=== PATIENT | female | born 1985 | race African-American/Black ===

== ENCOUNTER 2019-11-23 12:17 | Emergency (ER) | payer SELFPAY ==
--- NOTE | 2019-11-23 13:08 | EDM.PDOC ---
ED HPI GENERAL MEDICAL PROBLEM - General Chief Complaint: ENT Problem Stated Complaint: COUGH, SORE THROAT Time Seen by Provider: 11/23/19 12:20 - History of Present Illness INITIAL COMMENTS - FREE TEXT/NARRATIVE: HPI 33-year-old female with history of Crohns (apparently in remission requiring a medication) presents for evaluation of a nonproductive cough, sore throat, and sinus congestion of one day duration. No fevers, chills. Denies rash, neck stiffness, headache, changes in vision or hearing, or ear pain. M/S/F/SocHx notable for: please see HPI; remainder reviewed with patient and in chart. ROS: Negative constitutional, eye, cardiovascular, pulmonary, GI, , MSK, skin , neurologic, psychiatric, endocrine unless noted in the HPI. Exam HR 113, RR 16, BP 120/86, T 36.4C, SaO2 97% on room air. Gen: Pleasant, non-toxic appearing, resting comfortably. HEENT: Normocephalic, atraumatic. * Ears - TMs clear bilaterally, bilateral external auditory canals without erythema, inflammation, or swelling, bilateral mastoids nontender without overlying erythema, swelling, or warmth. * Eyes - Bilateral eyes without injection, swelling, or discharge, no proptosis or periorbital erythema, swelling, warmth, or tenderness. * Mouth - Anterior oropharynx with MMM, no lesions appreciated, floor of the mouth is soft and without swelling. Posterior oropharynx with mild erythema but without swelling, exudate, lesions, uvula midline. * Nose - Nares with scant crusting and discharge. * Neck - Neck supple without posterior or anterior cervical chain lymphadenopathy bilaterally. Resp: Clear to auscultation bilaterally, normal work of breathing without accessory muscle usage. Frequent nonproductive cough observed. Card: Regular rate and rhythm with no murmurs, rubs or gallops. Extremities warm and well perfused. GI: Non-tender to palpation throughout all quadrants, no masses or organomegaly appreciated. : Deferred MSK: No visible deformities, strength and tone without visually appreciable deficit. Neuro: alert and oriented 3, no facial asymmetry, vision and hearing WNL. Heme/Lymph: Deferred Skin: Normal color with no visible lesions (other than noted above). Psych: Mood and affect appropriate. MDM Previous chart, nursing note, and vitals reviewed. A: 33-year-old female with history of Crohns (apparently in remission requiring a medication) presents for evaluation of a nonproductive cough, sore throat, and sinus congestion of one day duration. DDx: viral rhinosinusitis, bacterial rhinosinusitis, pharyngitis (HSV vs viral NOS vs GAS vs bacterial NOS)], EBV, peritonsillar cellulitis, BAND LEADER, RPA, Donell' s angina, epiglottitis. Evaluation: Overall presentation most consistent with a viral rhinosinutisis, given the duration of symptoms and overall well compensated appearance, antibiotic treatment is not currently indicated, rapid strep not indicated, oral mucosa without lesions consistent with HSV or candidiasis, low suspicion for peritonsillar cellulitis or abscess given the absence of asymmetric swelling or uvular deviation, RPA is unlikely as the patient can comfortably flex and extend their neck and swallow without difficulty. As phonation is intact and breathing is unlabored doubt epiglottitis. The floor of the mouth is without evidence of Donell's angina. Lemierre's disease was considered but as the patient does not have signs of BAND LEADER or sepsis, further evaluation was not indicated. Influencer was also considered on the differential, as the patient has a history of Crohns disease she would meet CDC treatment guidelines, negative rapid test were obtained, as such Tamiflu is not indicated. ED Course: No clinically significant changes. Disposition: Discharge with return to care as needed. Return to care indications provided. RX for Tessalon Perles provided. Impression: Rhinosinusitis. Throat Pain Score (Numeric/FACES): 8 - Related Data Allergies Allergy/AdvReac Type Severity Reaction Status Date / Time No Known Allergies Allergy Verified 11/23/19 12:29 Home Meds: Home Meds Benzonatate [Tessalon Perle] 100 - 200 mg PO TID PRN #20 capsule 11/23/19 [Rx] Past Medical History Gastrointestinal History: Reports: Irritable Bowel Syndrome - Infectious Disease History Infectious Disease History: Reports: None Social & Family History - Family History Family Medical History: Noncontributory - Tobacco Use Smoking Status *Q: Never Smoker Second Hand Smoke Exposure: No - Caffeine Use Caffeine Use: Reports: None - Recreational Drug Use Recreational Drug Use: No ED ROS GENERAL - Review of Systems Review Of Systems: See Below ED EXAM, GENERAL - Physical Exam Exam: See Below Course - Vital Signs Last Recorded V/S: Last Vital Signs Temp 36.4 C 11/23/19 12:29 Pulse 113 H 11/23/19 12:29 Resp 16 11/23/19 12:29 BP 120/86 11/23/19 12:29 Pulse Ox 97 11/23/19 12:29 Departure - Departure Time of Disposition: 13:07 Disposition: Home, Self-Care 01 Clinical Impression: Rhinosinusitis - Discharge Information Prescriptions: Benzonatate [Tessalon Perle] 100 - 200 mg PO TID PRN #20 capsule PRN Reason: cough Referrals: PCP,Unknown [Primary Care Provider] - Additional Instructions: You were in seen in the [facility] Emergency Department for evaluation of an upper respiratory tract infection. Please read and follow all of the instructions below. Please follow up with your primary care physician as needed. When calling for follow-up care, please make the office aware that this follow-up is from your recent emergency room visit. If for any reason you are refused follow-up, please contact the [facility] Emergency Department at and asked to speak to the emergency department charge nurse. Your care today was limited to identifying and treating emergent medical problems only. Many people have subtle differences in their test results that require follow up with their outpatient physician(s) to correctly determine if this represents a normal variation or concerning abnormality with respect to your specific health. The care given to you today was limited to identifying and treating emergent medical problems - you need to request a copy of all of your medical records from today's visit and follow up with your outpatient physician(s) to review both today's visit and your overall health. If you have any new symptoms or if you are at all concerned about your health please return immediately to the emergency department. Prescriptions: If you are uninsured or have financial difficulties with filling your prescription(s), you may consider using a free pharmacy discount service such as [employer] ([employer]) or [employer] ([employer]). These services allow you to search for a medication on your phone (or computer) and obtain a coupon that usually has a significant discount from the list [place] at a pharmacy. Your physician as well as [facility] does not have a financial relationship with either of these services. You may also wish to speak with your physician to determine if lower cost prescriptions are possible. Obtaining primary care: 1. [facility] provides pediatrics (children), family medicine (children, adults, and some obstetrical care), and internal medicine (adults). Further specialty care is also available. Same day appointments are available. They may be contacted at [phone] and are open Friday through Friday 8 AM to 5 PM. The [facility] are located at [facility], [address] [place] [address]. 2. [facility] offers family medicine, internal medicine, women health, and further specialty care. [facility] may be contacted at [phone]. [facility] is located at [address] [facility] [address]. 3. If you have health insurance, please also contact your insurer for a list of accepting providers under your policy, you may contact these providers for further health care. Occupational health: Work related injuries may consider following up with [facility], . Occupational health services are located at [address] [place] [address] and are open Friday through Friday from 7: 30 am to 5:00 pm. Obstetrical and Gynecological Care: [facility], , Friday through Friday 8 AM to [address] [place] [address]. Eyecare: If you have an eye injury you should follow up with your completion supervisor or with [facility], at [phone] or [phone] , they are located at [address] [place] [address]. Dental Care Jonah Méndez DDS. [address] [place], [place]. Ph. [phone] Mundo Méndez DDS [place]. [address] Ph. [phone] Levy Brewer DDS. [address] 11/[address] [place] [address]. Ph. [phone] Steven Boggs DDS. [address] [facility] [address] [place], [place]. Ph. [phone] Anil Franco DDS PC. [address] [facility] [address] [place], [place]. Ph. [phone] Jovana Zelalem Robins DDS. [address] [facility]. Ph. [phone] [facility]. [address] [place], [place]. Ph. [phone] [facility]. [address], [place], [place]. Ph. [phone] [facility] [address] [place] [phone]. Ph. [facility]. [address] [place] [address] [address] [place], [place]. Ph. [facility]. [address] [place], [place]. Ph. [phone] Cough Home Care Instructions You were seen in the emergency department today for evaluation of your cough. Based upon the evaluation today your cough does not appear to be caused by bacterial pneumonia, rather a virus is the cause of your cough. These types of infections cannot be treated by antibiotics, your body will fight this infection and clear the virus. Most people get better in 7-10 days. It is not uncommon to have a mild nonproductive cough last for up to several weeks following the resolution of your illness. If you continue have a cough beyond 7- 10 days please follow-up with your primary care physician. You may do the following treatments to reduce your symptoms: * Welf-gvf-lhdmejr cough medications containing dextromethorphan may reduce the frequency and severity of your coughing. Please take as directed on the bottle. Please read all warnings on the bottle. Do not take this medication if you have any allergies to any of the ingredients listed on the bottle. * Ibuprofen may be used to reduce fever, pain, and inflammation. You may take 600 mg (three 200 mg eooh-xke-tchiivf tablets) every 6-8 hours. Please read the warnings below regarding ibuprofen. Do not take this medication if you are or allergic to ibuprofen, Motrin, Aleve, or naproxen. * Please stay well-hydrated and get adequate rest. * If you are a smoker please stop smoking. * Nbwj-ktl-pldaola lozenges or tea with honey may be used for sore throat. Please return to the emergency department if any of the following occur: * Increasing fever. * Worsening cough or a cough that becomes productive of thick sputum. * A cough that temporarily gets better and then over the several days get significantly worse. This may occur if you developed a bacterial pneumonia following your viral infection. This rarely occurs and there is no prevention at this point in your infection. * Chest pain. * Shortness of breath or difficulty breathing. * If you are otherwise concerned about your health. Sepsis Event Note - Evaluation Sepsis Screening Result: No Definite Risk - Focused Exam Vital Signs: Vital Signs Temp Pulse Resp BP Pulse Ox 11/23/19 12:29 36.4 C 113 H 16 120/86 97 Date Exam was Performed: 11/23/19 Time Exam was Performed: 13:06
== END 2019-11-23 13:25 | disposition home or self-care (01) ==
LOC: MW.ED 12:17
DX: J32.9 Chronic sinusitis, unspecified (principal)
CPT/HCPCS: 87804; 99282; 99283

== ENCOUNTER 2020-01-20 06:46 | Emergency (ER) | payer SELFPAY ==
--- NOTE | 2020-01-20 07:33 | EDM.PDOC ---
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 She is 12 weeks . Her LMP was 10/27/2019. She is a G2, P1, A0. She has no vaginal discharge or bloody show. She complains of increasing nausea but no vomiting at this time. She denies any urinary complaints. She denies any other symptoms. Her OB doctor is Desire Welch MD. She last saw Dr. Welch January 06, 2020. 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: - Infectious Disease History Infectious Disease History: Reports: None - Past Surgical History GI Surgical History: Reports: None Female Surgical History: Reports: Section Social & Family History - Family History Family Medical History: Noncontributory - Tobacco Use Smoking Status *Q: Never Smoker Second Hand Smoke Exposure: No - Caffeine Use Caffeine Use: Reports: None - Recreational Drug Use Recreational Drug Use: No ED ROS GENERAL - Review of Systems Review Of Systems: See Below Constitutional: Reports: No Symptoms HEENT: Reports: No Symptoms Respiratory: Reports: No Symptoms Cardiovascular: Reports: No Symptoms Endocrine: Reports: No Symptoms GI/Abdominal: Reports: Abdominal Pain (lower abdomen that is crampy) : Reports: No Symptoms Musculoskeletal: Reports: No Symptoms Skin: Reports: No Symptoms Neurological: Reports: No Symptoms ED EXAM - Physical Exam Exam: See Below Exam Limited By: No Limitations General Appearance: Alert, WD/WN, No Apparent Distress Ears: Normal External Exam, Normal Canal, Hearing Grossly Normal, Normal TMs Nose: Normal Inspection, Normal Mucosa, No Blood Throat/Mouth: Normal Inspection, Normal Lips, Normal Teeth, Normal Gums, Normal Oropharynx, Normal Voice, No Airway Compromise Head: Atraumatic, Normocephalic Neck: Normal Inspection, Supple, Non-Tender, Full Range of Motion Respiratory/Chest: No Respiratory Distress, Lungs Clear, Normal Breath Sounds, No Accessory Muscle Use, Chest Non-Tender Cardiovascular: Normal Peripheral Pulses, Regular Rate, Rhythm, No Edema, No Gallop, No JVD, No Murmur, No Rub GI/Abdominal Exam: Normal Bowel Sounds, Soft, Tender (in the lower abdomen) Fundal Height In cm: 5 (below the umbilicus) Rectal Exam: Deferred (Female) Exam: Other (deferred at this time.) Heart Tones: Not Stearns Movement: Not Appreciated Back Exam: Normal Inspection, Full Range of Motion, NT Extremities: Normal Inspection, Normal Range of Motion, Non-Tender, Normal Capillary Refill, No Pedal Edema Neurological: Alert, Oriented, CN II-XII Intact, Normal Cognition, Normal Gait, Normal Reflexes Psychiatric: Normal Affect Skin Exam: Warm, Dry, Intact, Normal Color, No Rash Course - Vital Signs Text/Narrative:: Patient is doing much better. Her cramps has almost completely stopped. No nausea at this time. I discussed with her all of her diagnostic test including her Qunt Hcg which was 85,000 plus. She will discharge. She agrees with the discharge plan. Last Recorded V/S: Last Vital Signs Temp 97.6 F 01/20/20 09:49 Pulse 85 01/20/20 09:49 Resp 16 01/20/20 09:49 BP 100/58 L 01/20/20 09:49 Pulse Ox 99 01/20/20 09:49 - Orders/Labs/Meds Labs: Laboratory Tests 01/20/20 01/20/20 01/20/20 Range/Units 07:15 07:15 07:15 WBC 6.77 (4.0-11.0) K/uL RBC 4.17 L (4.30-5.90) M/uL Hgb 11.6 L (12.0-16.0) g/dL Hct 34.6 L (36.0-46.0) % MCV 83.0 (80.0-98.0) fL MCH 27.8 (27.0-32.0) pg MCHC 33.5 (31.0-37.0) g/dL RDW Std Deviation 48.4 (28.0-62.0) fl RDW Coeff of Claued 16 H (11.0-15.0) % Plt Count 319 (150-400) K/uL MPV 10.10 (7.40-12.00) fL Neut % (Auto) 57.1 (48.0-80.0) % Lymph % (Auto) 30.7 (16.0-40.0) % Baylor % (Auto) 8.7 (0.0-15.0) % Eos % (Auto) 3.1 (0.0-7.0) % Baso % (Auto) 0.4 (0.0-1.5) % Neut # (Auto) 3.9 (1.4-5.7) K/uL Lymph # (Auto) 2.1 (0.6-2.4) K/uL Baylor # (Auto) 0.6 (0.0-0.8) K/uL Eos # (Auto) 0.2 (0.0-0.7) K/uL Baso # (Auto) 0.0 (0.0-0.1) K/uL Nucleated RBC % 0.0 /100WBC Nucleated RBCs # 0 K/uL Sodium 137 (136-145) mmol/L Potassium 3.6 (3.5-5.1) mmol/L Chloride 104 (98-107) mmol/L Carbon Dioxide 23.3 (21.0-32.0) mmol/L BUN 8 (7.0-18.0) mg/dL Creatinine 0.7 (0.6-1.0) mg/dL Est Cr Clr Drug Dosing 90.41 mL/min Estimated GFR (MDRD) > 60.0 ml/min Glucose 85 (74-106) mg/dL Calcium 8.5 (8.5-10.1) mg/dL Total Bilirubin 0.2 (0.2-1.0) mg/dL AST 9 L (15-37) IU/L ALT 16 (14-63) IU/L Alkaline Phosphatase 56 (46-116) U/L Total Protein 6.7 (6.4-8.2) g/dL Albumin 2.6 L (3.4-5.0) g/dL Globulin 4.1 H (2.6-4.0) g/dL Albumin/Globulin Ratio 0.6 L (0.9-1.6) HCG, Quant 50338.0 mIU/mL Urine Color Urine Appearance Urine pH (5.0-8.0) Ur Specific Hull (1.001-1.035) Urine Protein (NEGATIVE) mg/dL Urine Glucose (UA) (NEGATIVE) mg/dL Urine Ketones (NEGATIVE) mg/dL Urine Occult Blood (NEGATIVE) Urine Nitrite (NEGATIVE) Urine Bilirubin (NEGATIVE) Urine Urobilinogen (<2.0) EU/dL Ur Leukocyte Esterase (NEGATIVE) Blood Type B POSITIVE Antibody Screen NEGATIVE 01/20/20 Range/Units 07:45 WBC (4.0-11.0) K/uL RBC (4.30-5.90) M/uL Hgb (12.0-16.0) g/dL Hct (36.0-46.0) % MCV (80.0-98.0) fL MCH (27.0-32.0) pg MCHC (31.0-37.0) g/dL RDW Std Deviation (28.0-62.0) fl RDW Coeff of Claude (11.0-15.0) % Plt Count (150-400) K/uL MPV (7.40-12.00) fL Neut % (Auto) (48.0-80.0) % Lymph % (Auto) (16.0-40.0) % Baylor % (Auto) (0.0-15.0) % Eos % (Auto) (0.0-7.0) % Baso % (Auto) (0.0-1.5) % Neut # (Auto) (1.4-5.7) K/uL Lymph # (Auto) (0.6-2.4) K/uL Baylor # (Auto) (0.0-0.8) K/uL Eos # (Auto) (0.0-0.7) K/uL Baso # (Auto) (0.0-0.1) K/uL Nucleated RBC % /100WBC Nucleated RBCs # K/uL Sodium (136-145) mmol/L Potassium (3.5-5.1) mmol/L Chloride (98-107) mmol/L Carbon Dioxide (21.0-32.0) mmol/L BUN (7.0-18.0) mg/dL Creatinine (0.6-1.0) mg/dL Est Cr Clr Drug Dosing mL/min Estimated GFR (MDRD) ml/min Glucose (74-106) mg/dL Calcium (8.5-10.1) mg/dL Total Bilirubin (0.2-1.0) mg/dL AST (15-37) IU/L ALT (14-63) IU/L Alkaline Phosphatase (46-116) U/L Total Protein (6.4-8.2) g/dL Albumin (3.4-5.0) g/dL Globulin (2.6-4.0) g/dL Albumin/Globulin Ratio (0.9-1.6) HCG, Quant mIU/mL Urine Color YELLOW Urine Appearance CLEAR Urine pH 8.0 (5.0-8.0) Ur Specific Hull 1.025 (1.001-1.035) Urine Protein NEGATIVE (NEGATIVE) mg/dL Urine Glucose (UA) NEGATIVE (NEGATIVE) mg/dL Urine Ketones NEGATIVE (NEGATIVE) mg/dL Urine Occult Blood NEGATIVE (NEGATIVE) Urine Nitrite NEGATIVE (NEGATIVE) Urine Bilirubin NEGATIVE (NEGATIVE) Urine Urobilinogen 0.2 (<2.0) EU/dL Ur Leukocyte Esterase NEGATIVE (NEGATIVE) Blood Type Antibody Screen Meds: Medications Discontinued Medications Generic Name Dose Route Start Last Admin Trade Name Freq PRN Reason Stop Dose Admin Sodium Chloride 1,000 mls @ 1,000 mls/hr 01/20/20 07:46 01/20/20 07:59 Normal Saline IV 01/20/20 08:45 1,000 mls/hr .Bolus ONE Administration Ondansetron HCl 4 mg 01/20/20 07:46 01/20/20 07:59 Zofran IVPUSH 01/20/20 07:47 4 mg ONETIME ONE Administration Tramadol HCl 50 mg 01/20/20 08:32 01/20/20 09:01 Ultram PO 01/20/20 08:33 50 mg ONETIME ONE Administration Departure - Departure Time of Disposition: 10:48 Disposition: Home, Self-Care 01 Condition: Good Clinical Impression: Qualifiers: Weeks of gestation: 13 weeks Qualified Code(s): Z3A.13 - 13 weeks gestation of Abdominal pain Qualifiers: Abdominal location: lower abdomen, unspecified Qualified Code(s): R10.30 - Lower abdominal pain, unspecified - Discharge Information *PRESCRIPTION DRUG MONITORING PROGRAM REVIEWED*: Yes *COPY OF PRESCRIPTION DRUG MONITORING REPORT IN PATIENT DAGMAR: Yes Instructions: Managing Pain Without Opioids, Eating Plan for Women Referrals: PCP,None [Primary Care Provider] - Forms: ED Department Discharge Additional Instructions: Take all medications as directed. Follow up with your PCP in the next two to four days. Drink plenty of clear liquids for the next 24-48 hours. Rest for the next 24 hours. Return to the ED if your condition gets worse or should you have any questions or concerns. The following information is given to patients seen in the emergency department who are being discharged to home. This information is to outline your options for follow-up care. We provide all patients seen in our emergency department with a follow-up referral. The need for follow-up, as well as the timing and circumstances, are variable depending upon the specifics of your emergency department visit. If you don't have a primary care physician on staff, we will provide you with a referral. We always advise you to contact your personal physician following an emergency department visit to inform them of the circumstance of the visit and for follow-up with them and/or the need for any referrals to a consulting specialist. The emergency department will also refer you to a specialist when appropriate. This referral assures that you have the opportunity for follow-up care with a specialist. All of these measure are taken in an effort to provide you with optimal care, which includes your follow-up. Under all circumstances we always encourage you to contact your private physician who remains a resource for coordinating your care. When calling for follow-up care, please make the office aware that this follow-up is from your recent emergency room visit. If for any reason you are refused follow-up, please contact the [facility] Emergency Department at and asked to speak to the emergency department charge nurse. Sepsis Event Note - Evaluation Sepsis Screening Result: No Definite Risk - Focused Exam Vital Signs: Vital Signs Temp Pulse Resp BP Pulse Ox 01/20/20 09:49 97.6 F 85 16 100/58 L 99 01/20/20 08:31 97.0 F 86 18 101/65 98 01/20/20 06:56 96.8 F L 105 H 18 108/70 97 Date Exam was Performed: 01/20/20 Time Exam was Performed: 10:46
[2020-01-20] MEDS ORDERED: Ondansetron 4 MG/2 ML SDV IVPUSH ONE (07:46)
[2020-01-20] MEDS ORDERED: Sodium Chloride 0.9% 1,000 ML IV ONE (07:46)
[2020-01-20 08:12] LABS: BLOOD UREA NITROGEN,BUN 8 mg/dL (7.0-18.0); CARBON DIOXIDE,CO2 23.3 mmol/L (21.0-32.0); CHLORIDE,CL 104 mmol/L (98-107); GLUCOSE RANDOM 85 mg/dL (74-106); POTASSIUM,K 3.6 mmol/L (3.5-5.1); SODIUM,NA 137 mmol/L (136-145)
[2020-01-20] MEDS ORDERED: traMADol 50 MG Tab PO ONE (08:32)
[2020-01-20] MEDS ORDERED: traMADol 50 MG Tab ONE (08:57)
== END 2020-01-20 11:11 | disposition home or self-care (01) ==
LOC: MW.ED 06:46
DX: O99.89 Other specified diseases and conditions complicating pregnancy, childbirth and the puerperium (principal); R10.30 Lower abdominal pain, unspecified; Z3A.13 13 weeks gestation of pregnancy
CPT/HCPCS: 36415; 80053; 81003; 84702; 85025; 86850; 86900; 86901; 96361; 96374; 99284; A9270; J2405; J7030

== ENCOUNTER 2020-01-31 17:18 | Emergency (ER) | payer MEDICAID ==
--- NOTE | 2020-01-31 18:23 | EDM.PDOC ---
ED HPI GENERAL MEDICAL PROBLEM - General Chief Complaint: Abdominal Pain Stated Complaint: SHARP PAIN LEFT SIDE ABDOMINAL Time Seen by Provider: 01/31/20 17:55 Source of Information: Reports: Patient History Limitations: Reports: No Limitations - History of Present Illness INITIAL COMMENTS - FREE TEXT/NARRATIVE: 34-year-old female presents with left chest pain. The pain is significant but only when breathing. Patient reports a recent coughing illness where she did a lot of coughing but this is dissipated several days ago. Today she was sitting in a chair she had sudden onset of left chest pain. Pain is 8/10, sharp. HOlding still makes it better. Patient denies a history of lung or leg clots. Patient does endorse a trip to [place] by plane less than 2 weeks ago. Patient is 10 weeks by ultrasound, there was an IUP found in the proper position. Patient denies any recent leg swelling. Patient denies significant shortness of breath. Patient denies : General: No fevers or chills. No malaise or fatigue. No recent change in weight. No thirst. Heent: No change in vision, no earache, sore throat or sinus congestion. Neck: No pain or stiffness. Cardiovascular: No chest wall pain or pressure. No palpitations. Pulmonary: No shortness of breath, cough or wheeze. Gastrointestinal: No abdominal pain, nausea, vomiting or diarrhea, melena or bright red blood per rectum. Genitourinary: No urinary frequency, urgency, hesitancy or dysuria. Muskuloskeletal: No joint or muscle pain, no back pain, no recent trauma. Dermatologic: No rash, no itching, no lesions. Neuro: No headache, seizures, numbness, tingling or weakness. Psych: No depressive symptoms. 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: Musculoskeletal History: Reports: None Neurological History: Reports: None Psychiatric History: Reports: None Endocrine/Metabolic History: Reports: None Hematologic History: Reports: None Immunologic History: Reports: None Oncologic (Cancer) History: Reports: None Dermatologic History: Reports: None - Infectious Disease History Infectious Disease History: Reports: None - Past Surgical History Head Surgeries/Procedures: Reports: None HEENT Surgical History: Reports: None Cardiovascular Surgical History: Reports: None Respiratory Surgical History: Reports: None GI Surgical History: Reports: None Female Surgical History: Reports: Section Endocrine Surgical History: Reports: None Neurological Surgical History: Reports: None Musculoskeletal Surgical History: Reports: None Oncologic Surgical History: Reports: None Dermatological Surgical History: Reports: None Social & Family History - Family History Family Medical History: Noncontributory - Tobacco Use Smoking Status *Q: Never Smoker Second Hand Smoke Exposure: No - Caffeine Use Caffeine Use: Reports: None - Recreational Drug Use Recreational Drug Use: No ED ROS GENERAL - Review of Systems Review Of Systems: Comprehensive ROS is negative, except as noted in HPI. ED EXAM, GENERAL - Physical Exam Exam: See Below Free Text/Narrative:: General: Some distress when breathing. Heent: Examination revealed no pallor, no icterus, no lymphadenopathy. The patient has normal posterior pharynx, moist mucous membranes. Neck: Supple. No JVD. No rigidity. Heart: Normal rate. Reg rhythm. No murmurs appreciated. Chest wall: Exquisite tenderness to the left lateral chest wall. Lungs: Bilaterally clear to auscultation. No focal findings. Abdomen: Nontender, non-distended, soft, no CVA tenderness. Neuro: Pt is moving all four extremities. EOMI. PERRL. Normal speech. Skin: Exposed areas appeared normally perfused, warm, normal color with no meaningful rashes or lesions. Extremities: Peripheral examination revealed no pedal edema. Peripheral pulses were 2+. EKG INTERPRETATION EKG Interpretation Comments: EKG time 5:53 PM. Sinus tachycardia at 102 bpm. Normal axis. Normal intervals. No ST-T wave changes. No suggestion of ischemia. Course - Vital Signs Text/Narrative:: Here with significant left chest wall pain. Exquisitely tender on her left chest wall. So much so that I was suspecting zoster initially however there is very little skin sensitivity dragging my finger over the tissue which perhaps argues against this. No signs of rash. This is not at all consistent with pulmonary embolus. The patient is at risk because she is 10 weeks however her d-dimer was 0.51 so for age adjustment this is not positive. She has no leg swelling. She has no DVTs in her legs. And again, negative troponin negative EKG change. No hypoxia. Not consistent with pulmonary embolus. I discussed this specific with the patient she does not want to work- up a pulmonary embolus. Also pulmonary emboli should not cause such exquisite chest wall pain. I certainly suspect this is a case of muscle tear and inflammation or something similar but is musculoskeletal in the chest wall. Patient agrees with this and accepts the risk of missing different diagnosis. Cannot start anti-inflammatories secondary the patient's but the patient can do Tylenol and do compressive wraps and ice which may be helpful. Return precautions were any changes in status. Last Recorded V/S: Last Vital Signs Temp 97.3 F 01/31/20 17:40 Pulse 85 01/31/20 20:39 Resp 16 01/31/20 20:39 BP 95/58 L 01/31/20 20:39 Pulse Ox 100 01/31/20 20:39 - Orders/Labs/Meds Labs: Laboratory Tests 01/31/20 01/31/20 01/31/20 Range/Units 18:00 18:00 18:00 WBC 10.83 (4.0-11.0) K/uL RBC 4.37 (4.30-5.90) M/uL Hgb 12.2 (12.0-16.0) g/dL Hct 36.1 (36.0-46.0) % MCV 82.6 (80.0-98.0) fL MCH 27.9 (27.0-32.0) pg MCHC 33.8 (31.0-37.0) g/dL RDW Std Deviation 47.6 (28.0-62.0) fl RDW Coeff of Claude 16 H (11.0-15.0) % Plt Count 368 (150-400) K/uL MPV 10.30 (7.40-12.00) fL Nucleated RBC % 0.0 /100WBC Nucleated RBCs # 0 K/uL D-Dimer, Quantitative 0.53 H (0.0-0.50) mg/L FEU Sodium 135 L (136-145) mmol/L Potassium 3.8 (3.5-5.1) mmol/L Chloride 101 (98-107) mmol/L Carbon Dioxide 21.6 (21.0-32.0) mmol/L BUN 10 (7.0-18.0) mg/dL Creatinine 0.6 (0.6-1.0) mg/dL Est Cr Clr Drug Dosing 105.48 mL/min Estimated GFR (MDRD) > 60.0 ml/min Glucose 84 (74-106) mg/dL Calcium 9.6 (8.5-10.1) mg/dL Total Bilirubin 0.2 (0.2-1.0) mg/dL AST 11 L (15-37) IU/L ALT 16 (14-63) IU/L Alkaline Phosphatase 64 (46-116) U/L Troponin I < 0.050 (0.000-0.056) ng/mL Total Protein 7.5 (6.4-8.2) g/dL Albumin 3.1 L (3.4-5.0) g/dL Globulin 4.4 H (2.6-4.0) g/dL Albumin/Globulin Ratio 0.7 L (0.9-1.6) Meds: Medications Discontinued Medications Generic Name Dose Route Start Last Admin Trade Name Freq PRN Reason Stop Dose Admin Acetaminophen 650 mg 01/31/20 18:25 01/31/20 19:21 Tylenol PO 01/31/20 18:26 650 mg NOW ONE Administration Ibuprofen 800 mg 01/31/20 20:29 01/31/20 20:36 Motrin PO 01/31/20 20:30 800 mg ONETIME ONE Administration Lidocaine 700 mg 01/31/20 20:27 01/31/20 20:35 Lidoderm 5% TOP 01/31/20 20:28 700 mg ONETIME ONE Administration Departure - Departure Time of Disposition: 20:50 Disposition: Home, Self-Care 01 Clinical Impression: Chest wall pain Prescriptions: Lidocaine 5% [Lidoderm 5%] 1 patch TOP Q12HR PRN 5 Days #10 patch PRN Reason: Pain Instructions: Chest Wall Pain Referrals: PCP,None [Primary Care Provider] - Forms: ED Department Discharge Additional Instructions: As we discussed, your pain is very likely to be in the muscles of your chest wall. Take Tylenol as directed for your pain. Ibuprofen is safe in the first 20 weeks of but not after that. If you feel like the Lidoderm patch is helping you can fill the prescription. Also consider wrapping with Ethan wrap we supply. You should follow-up with your primary care provider. You should also return here with any new or troubling symptoms. [facility] - [facility] [address] [place] [address] [place] [address] The following information is given to patients seen in the emergency department who are being discharged to home. This information is to outline your options for follow-up care. We provide all patients seen in our emergency department with a follow-up referral. The need for follow-up, as well as the timing and circumstances, are variable depending upon the specifics of your emergency department visit. If you don't have a primary care physician on staff, we will provide you with a referral. We always advise you to contact your personal physician following an emergency department visit to inform them of the circumstance of the visit and for follow-up with them and/or the need for any referrals to a consulting specialist. The emergency department will also refer you to a specialist when appropriate. This referral assures that you have the opportunity for follow-up care with a specialist. All of these measure are taken in an effort to provide you with optimal care, which includes your follow-up. Sepsis Event Note - Evaluation Sepsis Screening Result: No Definite Risk - Focused Exam Date Exam was Performed: 02/02/20 Time Exam was Performed: 21:31
[2020-01-31] MEDS ORDERED: Acetaminophen 325 MG Tab PO ONE (18:25)
[2020-01-31 18:34] LABS: BLOOD UREA NITROGEN,BUN 10 mg/dL (7.0-18.0); CARBON DIOXIDE,CO2 21.6 mmol/L (21.0-32.0); CHLORIDE,CL 101 mmol/L (98-107); GLUCOSE RANDOM 84 mg/dL (74-106); POTASSIUM,K 3.8 mmol/L (3.5-5.1); SODIUM,NA 135 mmol/L (136-145)
--- NOTE | 2020-01-31 18:55 | CR ---
Chest: 2 views of the chest were obtained. Comparison: No prior chest imaging is available. Heart size and mediastinum are normal. Lungs are clear with no acute parenchymal change. Bony structures are unremarkable. Impression: 1. Nothing acute is appreciated on 2 view chest x-ray. Diagnostic code #1 This report was dictated in Mountain Standard Time
--- NOTE | 2020-01-31 19:29 | US ---
Bilateral lower extremity deep venous ultrasound: Duplex and color Doppler evaluation was obtained of the right and left common femoral, superficial femoral, popliteal, posterior tibial and peroneal veins. Findings: Normal augmentation and compression is seen. Impression: 1. No evidence of deep venous thrombosis within the right or left lower extremities. Diagnostic code #1 This report was dictated in [place] Standard Time
[2020-01-31] MEDS ORDERED: Lidocaine 5% 700 MG Patch TOP ONE (20:27)
[2020-01-31] MEDS ORDERED: Ibuprofen 800 MG Tab PO ONE (20:29)
--- NOTE | 2020-01-31 20:36 | EDM.PDOC ---
ED HPI GENERAL MEDICAL PROBLEM - General Chief Complaint: Chest Pain Stated Complaint: SHARP PAIN LEFT SIDE Chest pain Time Seen by Provider: 01/31/20 17:55 Source of Information: Reports: Patient History Limitations: Reports: No Limitations - History of Present Illness INITIAL COMMENTS - FREE TEXT/NARRATIVE: General: Some distress when breathing. Heent: Examination revealed no pallor, no icterus, no lymphadenopathy. The patient has normal posterior pharynx, moist mucous membranes. Neck: Supple. No JVD. No rigidity. Heart: Normal rate. Reg rhythm. No murmurs appreciated. Chest wall: Exquisite tenderness to the left lateral chest wall. Lungs: Bilaterally clear to auscultation. No focal findings. Abdomen: Nontender, non-distended, soft, no CVA tenderness. Neuro: Pt is moving all four extremities. EOMI. PERRL. Normal speech. Skin: Exposed areas appeared normally perfused, warm, normal color with no meaningful rashes or lesions. Extremities: Peripheral examination revealed no pedal edema. Peripheral pulses were 2+. 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: Musculoskeletal History: Reports: None Neurological History: Reports: None Psychiatric History: Reports: None Endocrine/Metabolic History: Reports: None Hematologic History: Reports: None Immunologic History: Reports: None Oncologic (Cancer) History: Reports: None Dermatologic History: Reports: None - Infectious Disease History Infectious Disease History: Reports: None - Past Surgical History Head Surgeries/Procedures: Reports: None HEENT Surgical History: Reports: None Cardiovascular Surgical History: Reports: None Respiratory Surgical History: Reports: None GI Surgical History: Reports: None Female Surgical History: Reports: Section Endocrine Surgical History: Reports: None Neurological Surgical History: Reports: None Musculoskeletal Surgical History: Reports: None Oncologic Surgical History: Reports: None Dermatological Surgical History: Reports: None Social & Family History - Family History Family Medical History: Noncontributory - Tobacco Use Smoking Status *Q: Never Smoker Second Hand Smoke Exposure: No - Caffeine Use Caffeine Use: Reports: None - Recreational Drug Use Recreational Drug Use: No ED ROS GENERAL - Review of Systems Review Of Systems: See Below ED EXAM, GI/ABD - Physical Exam Exam: See Below Course - Vital Signs Text/Narrative:: Please see the original H&P as the patient's care was transferred to [place]. The patient's bilateral lower extremity ultrasounds are negative for any acute pathology. I went and spoke with the patient and examined her lungs are clear, she is not tachypneic, and I agree with the original physician that her pain is localized to the left lateral wall and is very reproducible. I also agree that the patient does not need a CT scan of the chest to rule out pulmonary embolism. Chest x-ray two-view is unremarkable for any acute pathology such as a pneumonia , pleural effusion, thoracic masses, etc. I spoke with the patient in detail about symptomatic treatment -Tylenol can be taken throughout and ibuprofen is safe for the first 20 weeks and she is only 13 weeks so she can take ibuprofen at this time. She will be given ibuprofen 800 mg here in the ER. I also spoke with her in detail about the possibility that she could have early shingles and to look for a possible rash in the next several days. We will also apply a Lidoderm patch which is safe in here in the ER. I will give her prescription for it and if she feels like the Lidoderm patch is providing relief she can fill the prescription. An Ethan wrap will also be provided since pressure seems to improve her symptoms. The patient has not urinated as of yet and she has no dysuria, no urinary frequency, no suprapubic discomfort and as such the patient does not want to wait around for urine and I feel that this is reasonable so she could follow-up on an outpatient basis. Stable for discharge. Last Recorded V/S: Last Vital Signs Temp 36.3 C 01/31/20 17:40 Pulse 93 01/31/20 19:21 Resp 20 01/31/20 19:21 BP 106/68 01/31/20 19:21 Pulse Ox 100 01/31/20 19:21 - Orders/Labs/Meds Orders: Active Orders 24 hr Category Date Time Status UA W/MICROSCOPIC [URIN] Stat Lab 01/31/20 19:05 Ordered Labs: Laboratory Tests 01/31/20 01/31/20 01/31/20 Range/Units 18:00 18:00 18:00 WBC 10.83 (4.0-11.0) K/uL RBC 4.37 (4.30-5.90) M/uL Hgb 12.2 (12.0-16.0) g/dL Hct 36.1 (36.0-46.0) % MCV 82.6 (80.0-98.0) fL MCH 27.9 (27.0-32.0) pg MCHC 33.8 (31.0-37.0) g/dL RDW Std Deviation 47.6 (28.0-62.0) fl RDW Coeff of Claude 16 H (11.0-15.0) % Plt Count 368 (150-400) K/uL MPV 10.30 (7.40-12.00) fL Nucleated RBC % 0.0 /100WBC Nucleated RBCs # 0 K/uL D-Dimer, Quantitative 0.53 H (0.0-0.50) mg/L FEU Sodium 135 L (136-145) mmol/L Potassium 3.8 (3.5-5.1) mmol/L Chloride 101 (98-107) mmol/L Carbon Dioxide 21.6 (21.0-32.0) mmol/L BUN 10 (7.0-18.0) mg/dL Creatinine 0.6 (0.6-1.0) mg/dL Est Cr Clr Drug Dosing 105.48 mL/min Estimated GFR (MDRD) > 60.0 ml/min Glucose 84 (74-106) mg/dL Calcium 9.6 (8.5-10.1) mg/dL Total Bilirubin 0.2 (0.2-1.0) mg/dL AST 11 L (15-37) IU/L ALT 16 (14-63) IU/L Alkaline Phosphatase 64 (46-116) U/L Troponin I < 0.050 (0.000-0.056) ng/mL Total Protein 7.5 (6.4-8.2) g/dL Albumin 3.1 L (3.4-5.0) g/dL Globulin 4.4 H (2.6-4.0) g/dL Albumin/Globulin Ratio 0.7 L (0.9-1.6) Meds: Medications Discontinued Medications Generic Name Dose Route Start Last Admin Trade Name Darvin PRN Reason Stop Dose Admin Acetaminophen 650 mg 01/31/20 18:25 01/31/20 19:21 Tylenol PO 01/31/20 18:26 650 mg NOW ONE Administration Ibuprofen 800 mg 01/31/20 20:29 Motrin PO 01/31/20 20:30 ONETIME ONE Lidocaine 700 mg 01/31/20 20:27 Lidoderm 5% TOP 01/31/20 20:28 ONETIME ONE Departure - Departure Time of Disposition: 20:36 Disposition: Home, Self-Care 01 Condition: Good Clinical Impression: Chest wall pain - Discharge Information *PRESCRIPTION DRUG MONITORING PROGRAM REVIEWED*: Not Applicable *COPY OF PRESCRIPTION DRUG MONITORING REPORT IN PATIENT DAGMAR: Not Applicable Instructions: Chest Wall Pain Referrals: PCP,None [Primary Care Provider] - Forms: ED Department Discharge Additional Instructions: As we discussed, your pain is very likely to be in the muscles of your chest wall. Take Tylenol as directed for your pain. Ibuprofen is safe in the first 20 weeks of but not after that. If you feel like the Lidoderm patch is helping you can fill the prescription. Also consider wrapping with Ethan wrap we supply. You should follow-up with your primary care provider. You should also return here with any new or troubling symptoms. [facility] - [facility] [address] [place] [id number] [address] [address] The following information is given to patients seen in the emergency department who are being discharged to home. This information is to outline your options for follow-up care. We provide all patients seen in our emergency department with a follow-up referral. The need for follow-up, as well as the timing and circumstances, are variable depending upon the specifics of your emergency department visit. If you don't have a primary care physician on staff, we will provide you with a referral. We always advise you to contact your personal physician following an emergency department visit to inform them of the circumstance of the visit and for follow-up with them and/or the need for any referrals to a consulting specialist. The emergency department will also refer you to a specialist when appropriate. This referral assures that you have the opportunity for follow-up care with a specialist. All of these measure are taken in an effort to provide you with optimal care, which includes your follow-up. Sepsis Event Note - Evaluation Sepsis Screening Result: No Definite Risk - Focused Exam Vital Signs: Vital Signs Temp Pulse Resp BP Pulse Ox 01/31/20 19:21 93 20 106/68 100 01/31/20 17:40 36.3 C 117 H 18 134/89 98 Date Exam was Performed: 01/31/20 Time Exam was Performed: 20:31
== END 2020-01-31 20:50 | disposition home or self-care (01) ==
LOC: MW.ED 17:18
DX: R07.89 Other chest pain (principal); R10.12 Left upper quadrant pain
CPT/HCPCS: 36415; 71046; 80053; 84484; 85027; 85379; 93005; 93970; 99285; A9270

== ENCOUNTER 2020-07-27 05:28 | Inpatient (IN) | payer MEDICAID ==
[~2020-07-27 05:28] MED LIST: Citric Acid/Sodium Citrate Solution 30 ML Cup PO ONE; Oxytocin/0.9 % Sodium Chloride 30 UNIT/500 ML BAG IV SCH; Sodium Chloride 0.9% 10 ML SDV IV PRN; Sodium Chloride 0.9% 10 ML Syringe FLUSH PRN; Sodium Chloride 0.9% 2.5 ML Syringe FLUSH PRN
[2020-07-27] MEDS: Lactated Ringers 1,000 ML IV SCH ×2 (06:15→07:45)
[2020-07-27] MEDS ORDERED: fentaNYL 100 MCG/2 ML SDV ONE (07:13)
[2020-07-27] MEDS ORDERED: Morphine PF 10 MG/10 ML SDV ONE (07:13)
[2020-07-27] MEDS ORDERED: Oxytocin 10 Units/1 ML SDV ONE (07:13)
[2020-07-27] MEDS ORDERED: Ondansetron 4 MG/2 ML SDV ONE (07:14)
[2020-07-27] MEDS ORDERED: Phenylephrine 1% 10 MG/ML SDV ONE (07:19)
[2020-07-27] MEDS ORDERED: ceFAZolin 1 GM Vial ONE (07:29)
[2020-07-27] MEDS ORDERED: Sodium Chloride 0.9% 20 ML ONE (07:29)
[2020-07-27] MEDS ORDERED: ceFAZolin 2 GM in Premix Bag 1 BAG IV ONE (07:29)
[2020-07-27] MEDS ORDERED: Citric Acid/Sodium Citrate Solution 30 ML Cup ONE (07:39)
--- NOTE | 2020-07-27 07:52 | PCM.PREANE ---
Preanesthetic Assessment - Anesthesia/Transfusion/Family Hx Anesthesia History: Prior Anesthesia Without Reaction Family History of Anesthesia Reaction: No Transfusion History: No Prior Transfusion(s) - Review of Systems General: No Symptoms Pulmonary: No Symptoms Cardiovascular: No Symptoms Gastrointestinal: No Symptoms Neurological: No Symptoms Other: Reports: None - Physical Assessment NPO Status Date: 07/26/20 Height: 5 ft 2 in Weight: 95.254 kg ASA Class: 2 Mental Status: Alert & Oriented x3 Airway Class: Mallampati = 2 Dentition: Reports: Normal Dentition ROM/Head Extension: Full Lungs: Clear to Auscultation, Normal Respiratory Effort Cardiovascular: Regular Rate, Regular Rhythm - Lab Values: Laboratory Last Values WBC 11.02 K/uL (4.0-11.0) H 07/24/20 09:39 RBC 4.33 M/uL (4.30-5.90) 07/24/20 09:39 Hgb 10.4 g/dL (12.0-16.0) L 07/24/20 09:39 Hct 33.4 % (36.0-46.0) L 07/24/20 09:39 MCV 77.1 fL (80.0-98.0) L 07/24/20 09:39 MCH 24.0 pg (27.0-32.0) L 07/24/20 09:39 MCHC 31.1 g/dL (31.0-37.0) 07/24/20 09:39 RDW Std Deviation 47.4 fl (28.0-62.0) 07/24/20 09:39 RDW Coeff of Claude 17 % (11.0-15.0) H 07/24/20 09:39 Plt Count 354 K/uL (150-400) 07/24/20 09:39 MPV 10.20 fL (7.40-12.00) 07/24/20 09:39 Nucleated RBC % 0.0 /100WBC 07/24/20 09:39 Nucleated RBCs # 0 K/uL 07/24/20 09:39 RPR Non-Reac (Non-Reac) 07/24/20 09:39 Blood Type B POSITIVE 07/27/20 06:28 Antibody Screen NEGATIVE 07/27/20 06:28 - Allergies Allergies/Adverse Reactions: Allergies Allergy/AdvReac Type Severity Reaction Status Date / Time No Known Allergies Allergy Verified 07/24/20 14:14 - Anesthesia Plan Pre-Op Medication Ordered: Antacids - Acknowledgements Anesthesia Type Planned: Spinal Pt an Appropriate Candidate for the Planned Anesthesia: Yes Alternatives and Risks of Anesthesia Discussed w Pt/Guardian: Yes Pt/Guardian Understands and Agrees with Anesthesia Plan: Yes Additional Comments: PMH: recent COVID disease about Jun 27, Pos covid test yest (prob residual viral particles, unlikely to be persistent infectious virus), Had what sounds like serotonin syndrome after IM tramadol in combination with STRAIGHT EDGER opioid (probably demerol) about 8 years ago. 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 Musculoskeletal History: Reports: None Neurological History: Reports: None Psychiatric History: Reports: None Endocrine/Metabolic History: Reports: Obesity/BMI 30+ Hematologic History: Reports: None Immunologic History: Reports: None Oncologic (Cancer) History: Reports: None Dermatologic History: Reports: None - Infectious Disease History Infectious Disease History: Reports: None - Past Surgical History Head Surgeries/Procedures: Reports: None Female Surgical History: Reports: Section - SUBSTANCE USE Smoking Status *Q: Never Smoker Tobacco Use Within Last Twelve Months: No Second Hand Smoke Exposure: No Recreational Drug Use History: No - HOME MEDS Home Medications: Home Meds Pnv No.103/Folic/Om3s/Fish Oil [ Gummies] 1 each PO DAILY 06/26/20 [History] - CURRENT (IN HOUSE) MEDS Current Meds: Current Medications Oxytocin/Sodium Chloride (Oxytocin 30 Unit/500 Ml-Ns) 30 unit in 500 mls @ 250 mls/hr IV TITRATE ALHAJI Lactated Ringer's (Ringers, Lactated) 1,000 mls @ 500 mls/hr IV BOLUS ALHAJI Last Admin: 07/27/20 06:15 Dose: 500 mls/hr Documented by: Cefazolin Sodium/Dextrose 2 gm (/ Premix) 50 mls @ 100 mls/hr IV ONETIME ONE Stop: 07/27/20 07:58 Sodium Chloride (Saline Flush) 10 ml FLUSH ASDIRECTED PRN PRN Reason: Keep Vein Open Sodium Chloride (Saline Flush) 2.5 ml FLUSH ASDIRECTED PRN PRN Reason: Keep Vein Open Sodium Chloride (Normal Saline) 10 ml IV ASDIRECTED PRN PRN Reason: IV Use Discontinued Medications Cefazolin Sodium (Ancef) Confirm Administered Dose 2 gm .ROUTE .STK-MED ONE Stop: 07/27/20 07:30 Citric Acid/Sodium Citrate (Bicitra Solution) 30 ml PO ONETIME ONE Stop: 07/24/20 08:59 Citric Acid/Sodium Citrate (Bicitra Solution) Confirm Administered Dose 30 ml .ROUTE .STK-MED ONE Stop: 07/27/20 07:40 Fentanyl (Sublimaze) Confirm Administered Dose 100 mcg .ROUTE .STK-MED ONE Stop: 07/27/20 07:14 Sodium Chloride (Normal Saline) Confirm Administered Dose 20 mls @ as directed .ROUTE .STK-MED ONE Stop: 07/27/20 07:30 Morphine Sulfate (Duramorph Pf) Confirm Administered Dose 10 mg .ROUTE .STK-MED ONE Stop: 07/27/20 07:14 Ondansetron HCl (Zofran) Confirm Administered Dose 4 mg .ROUTE .STK-MED ONE Stop: 07/27/20 07:15 Oxytocin (Pitocin) Confirm Administered Dose 20 unit .ROUTE .STK-MED ONE Stop: 07/27/20 07:14 Phenylephrine HCl (Grupo-Synephrine) Confirm Administered Dose 10 mg .ROUTE .STK- MED ONE Stop: 07/27/20 07:20
[2020-07-27] MEDS ORDERED: Nalbuphine 10 MG/1 ML Vial IVPUSH PRN (07:53)
[2020-07-27] MEDS ORDERED: fentaNYL 100 MCG/2 ML SDV IVPUSH PRN (07:53)
[2020-07-27] MEDS ORDERED: Acetaminophen/oxyCODONE 325-5 MG Tab PO PRN (07:53)
[2020-07-27] MEDS ORDERED: Propofol 200 MG/20 ML SDV ONE (08:35)
[2020-07-27] MEDS ORDERED: fentaNYL 250 MCG/5 ML SDV ONE (08:35)
[2020-07-27] MEDS ORDERED: Succinylcholine/Sod PF 100 MG/5 ML SYRINGE IV ONE (08:36)
[2020-07-27] MEDS ORDERED: Rocuronium Bromide 50 MG/5 ML Syringe ONE (08:36)
[2020-07-27] MEDS ORDERED: Midazolam 1 MG/ML 2 ML SDV ONE (08:39)
[2020-07-27] MEDS ORDERED: Glycopyrrolate 0.2 MG/ML SDV ONE ×2 (08:55→09:01)
[2020-07-27] MEDS ORDERED: Sugammadex Sodium 200 MG/2 ML VIAL ONE (09:10)
[2020-07-27] MEDS ORDERED: Oxytocin 10 Units/1 ML SDV IM PRN (09:19)
[2020-07-27] MEDS ORDERED: Bisacodyl 10 MG Supp RECTAL PRN (09:19)
[2020-07-27] MEDS ORDERED: Tranexamic Acid 1,000 MG in Sodium Chloride 0.9% 100 ML IV PRN (09:19)
[2020-07-27] MEDS ORDERED: Methylergonovine 0.2 MG/1 ML Amp IM PRN (09:19)
[2020-07-27] MEDS ORDERED: Ondansetron 4 MG/2 ML SDV IVPUSH PRN (09:19)
[2020-07-27] MEDS ORDERED: Lanolin 100% Cream 7 GM Tube TOP PRN (09:19)
[2020-07-27] MEDS ORDERED: diphenhydrAMINE 50 MG/ML SDV IVPUSH PRN (09:19)
[2020-07-27] MEDS ORDERED: Misoprostol 200 MCG Tab RECTAL PRN (09:19)
--- NOTE | 2020-07-27 09:23 | PCM.OPNOTE ---
- General Post-Op/Procedure Note Date of Surgery/Procedure: 07/27/20 Operative Procedure(s): REpeat C/section. Pre Op Diagnosis: IUP 39+wks Previous C/section. Post-Op Diagnosis: Same Anesthesia Technique: General ET Tube Primary Surgeon: Nick Manning Senior C Web Developer: Desire Soto Senior C Web Developer: Ani Cook EBL in mLs: 800 Complications: None Condition: Good
[2020-07-27] MEDS ORDERED: Lactated Ringers 1,000 ML IV SCH (09:30)
[2020-07-27] MEDS: Ketorolac 30 MG/ML SDV IVPUSH SCH ×2 (10:12→18:09)
--- NOTE | 2020-07-27 10:32 | PCM.POSTAN ---
POST ANESTHESIA ASSESSMENT - MENTAL STATUS Mental Status: Alert, Oriented - VITAL SIGNS Vital Signs: Last Vital Signs Temp 36.3 C 07/27/20 09:44 Pulse 102 H 07/27/20 10:25 Resp 13 07/27/20 10:25 BP 120/74 07/27/20 10:25 Pulse Ox 97 07/27/20 10:25 - RESPIRATORY Respiratory Status: Respiratory Rate WNL, Airway Patent, O2 Saturation Stable - CARDIOVASCULAR CV Status: Pulse Rate WNL, Blood Pressure Stable - GASTROINTESTINAL GI Status: No Symptoms - PAIN Pain Score: 4 - POST OP HYDRATION Hydration Status: Adequate & Stable
[2020-07-27] MEDS: Acetaminophen/oxyCODONE 325-5 MG Tab PO PRN ×2 (12:40→22:33)
--- NOTE | 2020-07-27 14:35 | OR ---
SURGEON: Nick Manning MD DATE OF PROCEDURE: 07/27/2020 PREOPERATIVE DIAGNOSES: Intrauterine of 39 weeks, previous section, admitted for elective repeat section. POSTOPERATIVE DIAGNOSES: Intrauterine of 39 weeks, previous section, admitted for elective repeat section. OPERATION PERFORMED: Repeat low transverse section. PRIMARY SURGEON: Nick Manning MD ASSISTANTS: Desire Soto CNM, and Ani Cook, nurse practitioner. ANESTHESIA: Failed spinal and then general anesthesia by Dr. Nicholson. ESTIMATED BLOOD LOSS: 800 mL. COMPLICATIONS: None. FINDINGS: Female fetus. score reported to be 5 and 9. Weight is not available at the time of the dictation. INDICATIONS FOR SURGERY: The patient had a previous section. She is admitted for elective repeat section. DESCRIPTION OF PROCEDURE: The patient brought to the OR, properly identified, and after trying spinal anesthesia which was successful, the patient elected to go to general anesthesia. The patient was prepped and draped in sterile fashion as usual with a Hendrix catheter in the bladder, and after adequate level of general anesthesia, a low transverse Pfannenstiel skin incision was done. Jigar's fascia and rectus fascia were opened in direction of the incision. The 2 recti muscles were and peritoneal cavity was entered. Bladder flap was raised in the usual manner, pushing the bladder away from the lower uterine segment. Low transverse uterine incision was done and extended manually with hand and the head was in the vertex position. With the aid of a Kiwi vacuum extraction, the head was delivered and then the rest of the body delivered without any problem and handed to be the resuscitating team. score later on reported to be 5 and 9. Weight is not available. The placenta delivered spontaneous, complete, and intact and repair of the lower uterine segment done with 2-0 Vicryl continuous interlocking in 2 layers. Reperitonealization done with 3-0 Vicryl continuous and then the peritoneal cavity evacuated completely from all blood and blood clot and closed with 3-0 Vicryl continuous. The rectus fascia was closed with #1 PDS double strand continuous, Jigar's fascia with 3-0 Vicryl continuous, and the skin closed with 3-0 Stratafix in a subcuticular fashion. Instrument and sponge counts were correct. The patient tolerated the procedure well, went to recovery room in stable general condition. COSME / CLAY /[id number]
[2020-07-28] MEDS: Ketorolac 30 MG/ML SDV IVPUSH SCH ×3 (00:19→09:02)
[2020-07-28] MEDS: Acetaminophen/oxyCODONE 325-5 MG Tab PO PRN ×3 (04:22→21:05)
[2020-07-28] MEDS: Docusate Sodium 100 MG Cap PO SCH ×3 (08:03→21:03)
--- NOTE | 2020-07-28 09:38 | PCM48HPAN ---
Post Anesthesia Note - EVALUATION WITHIN 48HRS OF ANESTHETIC Vital Signs in Normal Range: Yes Patient Participated in Evaluation: Yes Respiratory Function Stable: Yes Airway Patent: Yes Cardiovascular Function Stable: Yes Hydration Status Stable: Yes Pain Control Satisfactory: Yes Nausea and Vomiting Control Satisfactory: Yes Mental Status Recovered: Yes Vital Signs: Last Vital Signs Temp 35.5 C L 07/28/20 04:11 Pulse 105 H 07/28/20 04:11 Resp 13 07/28/20 04:11 BP 130/60 07/28/20 04:11 Pulse Ox 95 07/28/20 04:11 - COMMENTS/OBSERVATIONS Free Text/Narrative:: No anesthesia complications or concerns noted.
--- NOTE | 2020-07-28 10:01 | PCM.PNPP ---
- General Info Date of Service: 07/27/20 Functional Status: Reports: Pain Controlled - Review of Systems General: Reports: No Symptoms HEENT: Reports: No Symptoms Pulmonary: Reports: No Symptoms Cardiovascular: Reports: No Symptoms Gastrointestinal: Reports: No Symptoms Genitourinary: Reports: No Symptoms Musculoskeletal: Reports: No Symptoms Skin: Reports: No Symptoms Neurological: Reports: No Symptoms Psychiatric: Reports: No Symptoms - General Info Date of Service: 07/28/20 - Patient Data Vital Signs - Most Recent: Last Vital Signs Temp 35.5 C L 07/28/20 04:11 Pulse 105 H 07/28/20 04:11 Resp 13 07/28/20 04:11 BP 130/60 07/28/20 04:11 Pulse Ox 95 07/28/20 04:11 Weight - Most Recent: 95.254 kg I&O - Last 24 Hours: Intake & Output 07/27/20 07/28/20 07/28/20 22:59 06:59 14:59 Output Total 675 Balance -675 Lab Results - Last 24 Hours: Laboratory Results - last 24 hr 07/28/20 Range/Units 05:55 Hgb 8.6 L (12.0-16.0) g/dL Hct 27.1 L (36.0-46.0) % Med Orders - Current: Current Medications Bisacodyl (Dulcolax) 10 mg RECTAL ONETIME PRN PRN Reason: Constipation Diphenhydramine HCl (Benadryl) 25 mg IVPUSH Q6H PRN PRN Reason: Itching or Nausea Docusate Sodium (Colace) 100 mg PO BID [facility] Last Admin: 07/28/20 09:02 Dose: 100 mg Documented by: Emollient Ointment (Lansinoh Hpa) 0 gm TOP ASDIRECTED PRN PRN Reason: Sore Nipples Oxytocin/Sodium Chloride (Oxytocin 30 Unit/500 Ml-Ns) 30 unit in 500 mls @ 250 mls/hr IV TITRATE [facility] Lactated Ringer's (Ringers, Lactated) 1,000 mls @ 500 mls/hr IV BOLUS [facility] Last Admin: 07/27/20 07:45 Dose: 999 mls/hr Documented by: Lactated Ringer's (Ringers, Lactated) 1,000 mls @ 125 mls/hr IV ASDIRECTED [facility] Last Admin: 07/27/20 10:30 Dose: 125 mls/hr Documented by: Tranexamic Acid 1,000 mg/ (Sodium Chloride) 110 mls @ 660 mls/hr IV ONETIME PRN PRN Reason: Bleeding Ibuprofen (Motrin) 800 mg PO Q8H PRN PRN Reason: mild pain or fever Methylergonovine Maleate (Methergine) 0.2 mg IM ONETIME PRN PRN Reason: Excessive Vaginal Bleeding Misoprostol (Cytotec) 1,000 mcg RECTAL ONETIME PRN PRN Reason: excessive bleeding Ondansetron HCl (Zofran) 4 mg IVPUSH Q4H PRN PRN Reason: Nausea/Vomiting Oxycodone/Acetaminophen (Percocet 325-5 Mg) 1 tab PO Q4H PRN PRN Reason: Pain (moderate 4-6) Oxycodone/Acetaminophen (Percocet 325-5 Mg) 2 tab PO Q4H PRN PRN Reason: Pain (moderate 4-6) Last Admin: 07/28/20 04:22 Dose: 2 tab Documented by: Oxytocin (Pitocin) 10 unit IM ASDIRECTED PRN PRN Reason: Excessive Vaginal Bleeding Sodium Chloride (Saline Flush) 10 ml FLUSH ASDIRECTED PRN PRN Reason: Keep Vein Open Sodium Chloride (Saline Flush) 2.5 ml FLUSH ASDIRECTED PRN PRN Reason: Keep Vein Open Sodium Chloride (Normal Saline) 10 ml IV ASDIRECTED PRN PRN Reason: IV Use Discontinued Medications Cefazolin Sodium (Ancef) Confirm Administered Dose 2 gm .ROUTE .STK-MED ONE Stop: 07/27/20 07:30 Citric Acid/Sodium Citrate (Bicitra Solution) 30 ml PO ONETIME ONE Stop: 07/24/20 08:59 Citric Acid/Sodium Citrate (Bicitra Solution) Confirm Administered Dose 30 ml .ROUTE .STK-MED ONE Stop: 07/27/20 07:40 Last Admin: 07/27/20 08:04 Dose: 15 ml Documented by: Fentanyl (Sublimaze) Confirm Administered Dose 100 mcg .ROUTE .STK-MED ONE Stop: 07/27/20 07:14 Fentanyl (Sublimaze) 50 mcg IVPUSH Q5M PRN PRN Reason: Pain (severe 7-10) Stop: 07/28/20 07:53 Fentanyl (Sublimaze) Confirm Administered Dose 250 mcg .ROUTE .STK-MED ONE Stop: 07/27/20 08:36 Glycopyrrolate (Robinul) Confirm Administered Dose 0.4 mg .ROUTE .STK-MED ONE Stop: 07/27/20 08:56 Glycopyrrolate (Robinul) Confirm Administered Dose 0.2 mg .ROUTE .STK-MED ONE Stop: 07/27/20 09:02 Cefazolin Sodium/Dextrose 2 gm (/ Premix) 50 mls @ 100 mls/hr IV ONETIME ONE Stop: 07/27/20 07:58 Last Admin: 07/27/20 08:08 Dose: 100 mls/hr Documented by: Sodium Chloride (Normal Saline) Confirm Administered Dose 20 mls @ as directed .ROUTE .STK-MED ONE Stop: 07/27/20 07:30 Ketorolac Tromethamine (Toradol) 30 mg IVPUSH Q6H ALHAJI Stop: 07/28/20 09:31 Last Admin: 07/28/20 09:02 Dose: 30 mg Documented by: Lidocaine HCl (Xylocaine-Mpf 1%) Confirm Administered Dose 5 ml .ROUTE .STK-MED ONE Stop: 07/27/20 08:27 Lidocaine HCl (Xylocaine-Mpf 1%) Confirm Administered Dose 5 ml .ROUTE .STK-MED ONE Stop: 07/27/20 08:37 Midazolam HCl (Versed 1 Mg/Ml) Confirm Administered Dose 2 mg .ROUTE .STK-MED ONE Stop: 07/27/20 08:40 Morphine Sulfate (Duramorph Pf) Confirm Administered Dose 10 mg .ROUTE .STK-MED ONE Stop: 07/27/20 07:14 Nalbuphine HCl (Nubain) 2.5 mg IVPUSH Q3H PRN PRN Reason: Pruritis Stop: 07/28/20 07:53 Ondansetron HCl (Zofran) Confirm Administered Dose 4 mg .ROUTE .STK-MED ONE Stop: 07/27/20 07:15 Oxycodone/Acetaminophen (Percocet 325-5 Mg) 1 tab PO ONETIME PRN PRN Reason: Pain (moderate 4-6) Oxytocin (Pitocin) Confirm Administered Dose 20 unit .ROUTE .STK-MED ONE Stop: 07/27/20 07:14 Phenylephrine HCl (Grupo-Synephrine) Confirm Administered Dose 10 mg .ROUTE .STK- MED ONE Stop: 07/27/20 07:20 Propofol (Diprivan 20 Ml) Confirm Administered Dose 200 mg .ROUTE .STK-MED ONE Stop: 07/27/20 08:36 Rocuronium [place] (Rocuronium [place]) Confirm Administered Dose 50 mg .ROUTE .STK-MED ONE Stop: 07/27/20 08:37 Sugammadex Sodium (Bridion) Confirm Administered Dose 200 mg .ROUTE .STK-MED ONE Stop: 07/27/20 09:11 - Interaction Disposition, : [facility] in Room with Family Infant Interaction: Holding Infant Feeding: Attempted ; Nursed Fair/Poor Support Person: Mother - Recovery Exam Fundal Tone: Firm Fundal Level: 1 Fingerbreadths Below Umbilicus Fundal Placement: Midline Lochia Amount: Scant Lochia Color: Rubra/Red Perineum Description: Intact, Minimal Bruising/Swelling Episiotomy/Laceration: Approximated Bladder Status: Indwelling Catheter in Place - Exam General: Alert, Oriented HEENT: Pupils Equal Neck: Supple Lungs: Clear to Auscultation, Normal Respiratory Effort Cardiovascular: Regular Rate, Regular Rhythm GI/Abdominal Exam: Normal Bowel Sounds, Soft, Non-Tender, No Organomegaly, No Distention, No Abnormal Bruit, No Mass, Pelvis Stable Extremities: Normal Inspection, Normal Range of Motion, Non-Tender, No Pedal Edema, Normal Capillary Refill Skin: Warm, Dry, Intact Wound/Incisions: Healing Well Neurological: No New Focal Deficit Psy/Mental Status: Alert, Normal Affect, Normal Mood - Problem List Review Problem List Initiated/Reviewed/Updated: Yes - My Orders Last 24 Hours: My Active Orders 07/27/20 09:19 Patient Status [ADT] Routine Ambulate [RC] PER UNIT ROUTINE Communication Order [RC] PER UNIT ROUTINE Communication Order [RC] PER UNIT ROUTINE Communication Order [RC] Per Unit Routine May Shower [RC] ASDIRECTED RT Incentive Spirometry [RC] Q2HWA Vital Signs [RC] PER UNIT ROUTINE Acetaminophen/oxyCODONE [Percocet 325-5 MG] 1 tab PO Q4H PRN Acetaminophen/oxyCODONE [Percocet 325-5 MG] 2 tab PO Q4H PRN Ibuprofen [Motrin] 800 mg PO Q8H PRN Lanolin [Lansinoh HPA] See Dose Instructions TOP ASDIRECTED PRN Methylergonovine [Methergine] 0.2 mg IM ONETIME PRN Ondansetron [Zofran] 4 mg IVPUSH Q4H PRN Oxytocin [Pitocin] 10 unit IM ASDIRECTED PRN Tranexamic Acid [Cyklokapron] 1,000 mg Sodium Chloride 0.9% [Normal Saline] 100 ml IV ONETIME bisacodyL [Dulcolax] 10 mg RECTAL ONETIME PRN diphenhydrAMINE [Benadryl] 25 mg IVPUSH Q6H PRN miSOPROStoL [Cytotec] 1,000 mcg RECTAL ONETIME PRN Assess Lochia [WOMSER] Per Unit Routine Assess Uterine Involution [WOMSER] Per Unit Routine Breast Pump [WOMSER] Per Unit Routine Peripheral IV Discontinue [OM.PC] Routine Sequential Compression Device [OM.PC] Per Unit Routine 07/27/20 09:20 Antiembolic Devices [RC] PER UNIT ROUTINE 07/27/20 09:30 Lactated Ringers [Ringers, Lactated] 1,000 ml IV ASDIRECTED 07/27/20 Dinner Regular Diet [DIET] 07/27/20 21:00 Docusate Sodium [Colace] 100 mg PO BID - Assessment Assessment:: Status post section postoperative day #1 patient is doing well ambulatory Hendrix catheter is DC'd and the incision is clean and dry - Plan Plan:: Patient will be discharged home in a.m. with the irregular post section instruction
[2020-07-28] MEDS: Ibuprofen 800 MG Tab PO PRN (21:03)
[2020-07-29] MEDS: Ibuprofen 800 MG Tab PO PRN ×2 (01:25→11:56)
--- NOTE | 2020-07-29 05:53 | PCM.DCSUM1 ---
Discharge Summary - Hospital Course Free Text/Narrative:: Fabi is a 34 yo PPD2 S/P RCS at 39.1 weeks gestation with spinal analgesia and thick meconium. B pos, RI, GBS neg. Hemodynamically stable, afebrile. Patient ambulating, eating, hydrating, voiding, and feeding NBM independently and without difficulty. Bottle feeding. Pain well controlled. Small to moderate vaginal bleeding, firm @U. Incision clean, dry, approximated. Minimal serosanginous drainage noted. Patient verbalizes desire to be disc harged home today. Diagnosis: Stroke: No - Discharge Data Discharge Date: 07/29/20 Discharge Disposition: Home, Self-Care 01 Condition: Good - Referral to Home Health Primary Care Physician: PCP None - Discharge Diagnosis/Problem(s) (1) Delivery by section SNOMED Code(s): 498689743 ICD Code: [id number] - Status: Acute Priority: High Current Visit: Yes - Patient Summary/Data Operative Procedure(s) Performed: Repeat LTCS - Patient Instructions Diet: Usual Diet as Tolerated, Drink 8-10+ Glasses/Day Activity: As Tolerated, No Strenuous Activities Driving: May Drive Today Driving, Other: Sitz baths for perineal care Showering/Bathing: May Shower Notify Provider of: Fever, Increased Pain, Swelling and Redness, Drainage, Nausea and/or Vomiting - Discharge Plan *PRESCRIPTION DRUG MONITORING PROGRAM REVIEWED*: No *COPY OF PRESCRIPTION DRUG MONITORING REPORT IN PATIENT DAGMAR: No Prescriptions/Med Rec: Iron Polysaccharides Complex [Ferrex 150] 150 mg PO BID #60 cap Ibuprofen [Motrin] 800 mg PO Q8H PRN #90 tablet PRN Reason: mild pain or fever Home Medications: Home Meds Pnv No.103/Folic/Om3s/Fish Oil [ Gummies] 1 each PO DAILY 06/26/20 [ History] Ibuprofen [Motrin] 800 mg PO Q8H PRN #90 tablet 07/29/20 [Rx] Iron Polysaccharides Complex [Ferrex 150] 150 mg PO BID #60 cap 07/29/20 [Rx] Oxygen Therapy Mode: Room Air Referrals: Nick Manning MD [Physician] - 08/02/20 2:45 pm (1 week follow up for incision check with Dr. Manning 08/02/2002 at 2:45p.m. 6 week follow up with leonel [email or web address] at 2:15pm) - Discharge Summary/Plan Comment DC Time >30 min.: Yes (Today) - General Info Date of Service: 07/29/20 Functional Status: Reports: Pain Controlled, Tolerating Diet, Ambulating, Urinating Numeric/FACES Score: 5 - Review of Systems General: Reports: No Symptoms HEENT: Reports: No Symptoms Pulmonary: Reports: No Symptoms Cardiovascular: Reports: No Symptoms Gastrointestinal: Reports: No Symptoms Genitourinary: Reports: No Symptoms Musculoskeletal: Reports: No Symptoms Skin: Reports: No Symptoms Neurological: Reports: No Symptoms Psychiatric: Reports: No Symptoms - Patient Data Vitals - Most Recent: Last Vital Signs Temp 97.4 F 07/29/20 04:28 Pulse 109 H 07/29/20 04:28 Resp 15 07/29/20 04:28 BP 110/69 07/29/20 04:28 Pulse Ox 97 07/29/20 04:28 Weight - Most Recent: 210 lb Lab Results - Last 24 hrs: Laboratory Results - last 24 hr 07/28/20 Range/Units 05:55 Hgb 8.6 L (12.0-16.0) g/dL Hct 27.1 L (36.0-46.0) % Med Orders - Current: Current Medications Bisacodyl (Dulcolax) 10 mg RECTAL ONETIME PRN PRN Reason: Constipation Diphenhydramine HCl (Benadryl) 25 mg IVPUSH Q6H PRN PRN Reason: Itching or Nausea Docusate Sodium (Colace) 100 mg PO BID [facility] Last Admin: 07/28/20 21:03 Dose: 100 mg Documented by: Emollient Ointment (Lansinoh Hpa) 0 gm TOP ASDIRECTED PRN PRN Reason: Sore Nipples Oxytocin/Sodium Chloride (Oxytocin 30 Unit/500 Ml-Ns) 30 unit in 500 mls @ 250 mls/hr IV TITRATE [facility] Lactated Ringer's (Ringers, Lactated) 1,000 mls @ 500 mls/hr IV BOLUS [facility] Last Admin: 07/27/20 07:45 Dose: 999 mls/hr Documented by: Lactated Ringer's (Ringers, Lactated) 1,000 mls @ 125 mls/hr IV ASDIRECTED [facility] Last Admin: 07/27/20 10:30 Dose: 125 mls/hr Documented by: Tranexamic Acid 1,000 mg/ (Sodium Chloride) 110 mls @ 660 mls/hr IV ONETIME PRN PRN Reason: Bleeding Ibuprofen (Motrin) 800 mg PO Q8H PRN PRN Reason: mild pain or fever Last Admin: 07/29/20 01:25 Dose: 800 mg Documented by: Methylergonovine Maleate (Methergine) 0.2 mg IM ONETIME PRN PRN Reason: Excessive Vaginal Bleeding Misoprostol (Cytotec) 1,000 mcg RECTAL ONETIME PRN PRN Reason: excessive bleeding Ondansetron HCl (Zofran) 4 mg IVPUSH Q4H PRN PRN Reason: Nausea/Vomiting Oxycodone/Acetaminophen (Percocet 325-5 Mg) 1 tab PO Q4H PRN PRN Reason: Pain (moderate 4-6) Last Admin: 07/28/20 15:30 Dose: 1 tab Documented by: Oxycodone/Acetaminophen (Percocet 325-5 Mg) 2 tab PO Q4H PRN PRN Reason: Pain (moderate 4-6) Last Admin: 07/28/20 21:05 Dose: 2 tab Documented by: Oxytocin (Pitocin) 10 unit IM ASDIRECTED PRN PRN Reason: Excessive Vaginal Bleeding Sodium Chloride (Saline Flush) 10 ml FLUSH ASDIRECTED PRN PRN Reason: Keep Vein Open Sodium Chloride (Saline Flush) 2.5 ml FLUSH ASDIRECTED PRN PRN Reason: Keep Vein Open Sodium Chloride (Normal Saline) 10 ml IV ASDIRECTED PRN PRN Reason: IV Use Discontinued Medications Cefazolin Sodium (Ancef) Confirm Administered Dose 2 gm .ROUTE .STK-MED ONE Stop: 07/27/20 07:30 Citric Acid/Sodium Citrate (Bicitra Solution) 30 ml PO ONETIME ONE Stop: 07/24/20 08:59 Citric Acid/Sodium Citrate (Bicitra Solution) Confirm Administered Dose 30 ml .ROUTE .STK-MED ONE Stop: 07/27/20 07:40 Last Admin: 07/27/20 08:04 Dose: 15 ml Documented by: Fentanyl (Sublimaze) Confirm Administered Dose 100 mcg .ROUTE .STK-MED ONE Stop: 07/27/20 07:14 Fentanyl (Sublimaze) 50 mcg IVPUSH Q5M PRN PRN Reason: Pain (severe 7-10) Stop: 07/28/20 07:53 Fentanyl (Sublimaze) Confirm Administered Dose 250 mcg .ROUTE .STK-MED ONE Stop: 07/27/20 08:36 Glycopyrrolate (Robinul) Confirm Administered Dose 0.4 mg .ROUTE .STK-MED ONE Stop: 07/27/20 08:56 Glycopyrrolate (Robinul) Confirm Administered Dose 0.2 mg .ROUTE .STK-MED ONE Stop: 07/27/20 09:02 Cefazolin Sodium/Dextrose 2 gm (/ Premix) 50 mls @ 100 mls/hr IV ONETIME ONE Stop: 07/27/20 07:58 Last Admin: 07/27/20 08:08 Dose: 100 mls/hr Documented by: Sodium Chloride (Normal Saline) Confirm Administered Dose 20 mls @ as directed .ROUTE .STK-MED ONE Stop: 07/27/20 07:30 Ketorolac Tromethamine (Toradol) 30 mg IVPUSH Q6H ALHAJI Stop: 07/28/20 09:31 Last Admin: 07/28/20 09:02 Dose: 30 mg Documented by: Lidocaine HCl (Xylocaine-Mpf 1%) Confirm Administered Dose 5 ml .ROUTE .STK-MED ONE Stop: 07/27/20 08:27 Lidocaine HCl (Xylocaine-Mpf 1%) Confirm Administered Dose 5 ml .ROUTE .STK-MED ONE Stop: 07/27/20 08:37 Midazolam HCl (Versed 1 Mg/Ml) Confirm Administered Dose 2 mg .ROUTE .STK-MED ONE Stop: 07/27/20 08:40 Morphine Sulfate (Duramorph Pf) Confirm Administered Dose 10 mg .ROUTE .STK-MED ONE Stop: 07/27/20 07:14 Nalbuphine HCl (Nubain) 2.5 mg IVPUSH Q3H PRN PRN Reason: Pruritis Stop: 07/28/20 07:53 Ondansetron HCl (Zofran) Confirm Administered Dose 4 mg .ROUTE .STK-MED ONE Stop: 07/27/20 07:15 Oxycodone/Acetaminophen (Percocet 325-5 Mg) 1 tab PO ONETIME PRN PRN Reason: Pain (moderate 4-6) Oxytocin (Pitocin) Confirm Administered Dose 20 unit .ROUTE .STK-MED ONE Stop: 07/27/20 07:14 Phenylephrine HCl (Grupo-Synephrine) Confirm Administered Dose 10 mg .ROUTE .STK- MED ONE Stop: 07/27/20 07:20 Propofol (Diprivan 20 Ml) Confirm Administered Dose 200 mg .ROUTE .STK-MED ONE Stop: 07/27/20 08:36 Rocuronium [place] (Rocuronium [place]) Confirm Administered Dose 50 mg .ROUTE .STK-MED ONE Stop: 07/27/20 08:37 Sugammadex Sodium (Bridion) Confirm Administered Dose 200 mg .ROUTE .STK-MED ONE Stop: 07/27/20 09:11 - Exam General: Reports: Alert, Oriented, Cooperative, No Acute Distress HEENT: Reports: Pupils Equal, Pupils Reactive, Mucous Membr. Moist/[place] Neck: Reports: Supple Lungs: Reports: Clear to Auscultation, Normal Respiratory Effort Cardiovascular: Reports: Regular Rate, Regular Rhythm GI/Abdominal Exam: Normal Bowel Sounds, Soft, Non-Tender, No Organomegaly, No Distention (Female) Exam: Normal External Exam, Enlarged Uterus ( uterus), Vaginal Bleeding (Moderate rubra lochia, no clots) Rectal (Female) Exam: Deferred Back Exam: Reports: Normal Inspection, Full Range of Motion Extremities: Normal Inspection, Normal Range of Motion, Non-Tender, No Pedal Edema, Normal Capillary Refill Skin: Reports: Warm, Dry, Intact Wound/Incisions: Reports: Dressing Dry and Intact, Drainage (Old serosanginous drainage.) Neurological: Reports: No New Focal Deficit Psy/Mental Status: Reports: Alert, Normal Affect, Normal Mood
[2020-07-29] MEDS: Acetaminophen/oxyCODONE 325-5 MG Tab PO PRN ×2 (08:09→11:57)
[2020-07-29] MEDS: Docusate Sodium 100 MG Cap PO SCH (08:09)
[2020-07-29] MEDS ORDERED: Iron Polysaccharides Complex 150 MG Cap PO SCH (09:00)
== END 2020-07-29 13:45 | disposition home or self-care (01) | DRG 788 ==
LOC: MW.OB 05:28
PROVIDERS: ADMIT Obstetrics & Gynecology; ATTEND Obstetrics & Gynecology
PROC: 10D00Z1 Extraction of Products of Conception, Low, Open Approach (ICD-10-PCS; principal; 2020-07-27)
DX: O34.211 Maternal care for low transverse scar from previous cesarean delivery (principal); Z37.0 Single live birth; Z3A.39 39 weeks gestation of pregnancy
CPT/HCPCS: 36415; 51702; 59025; 85014; 85018; 85027; 86592; 86850; 86900; 86901; A9270-GY; J0330; J0690; J1885; J2001; J2250; J2270; J2370; J2405; J2590; J2704; J3010; J3490; J7120

== ENCOUNTER 2021-06-29 13:28 | Emergency (ER) | payer MEDICAID ==
[2021-06-29] MEDS ORDERED: Ketorolac 60 MG/2 ML SDV IM ONE (13:58)
--- NOTE | 2021-06-29 14:00 | EDM.PDOC ---
ED HPI GENERAL MEDICAL PROBLEM - General Chief Complaint: Lower Extremity Injury/Pain Stated Complaint: L KNEE/FOOT PAIN Time Seen by Provider: 06/29/21 13:41 Source of Information: Reports: Patient History Limitations: Reports: No Limitations - History of Present Illness INITIAL COMMENTS - FREE TEXT/NARRATIVE: HISTORY AND PHYSICAL: History of present illness: The patient is a 35-year-old female who presents to the emergency room with complaints of left foot and knee pain after falling. The patient states she heard a pop but is unsure of the area the sound came from. Patient states that her knee pain is dull and that her foot and medial ankle pain is severe. The patient did take 650 mg of Tylenol prior to coming to the emergency department. The patient has never had pain like this before. Patient denies any fever, chills, headache, change in vision, syncope or near syncope. Denies any chest pain, back pain, shortness of breath or cough. Denies any abdominal pain, nausea, vomiting, diarrhea, constipation or dysuria. Has not noted any blood in urine or stool. Patient has been eating and drinking appropriately. Review of systems: As per history of present illness and below otherwise all systems reviewed and negative. Past medical history: As per history of present illness and as reviewed below otherwise noncontributory. Surgical history: As per history of present illness and as reviewed below otherwise noncontributory. Social history: See social history for further information Family history: As per history of present illness and as reviewed below otherwise noncontributory. Physical exam: General: Well developed and well nourished. Alert and orientated x 3. Nontoxic in appearance and in no acute distress. Vital signs are stable and have been reviewed by me. Nursing notes were reviewed. HEENT: Atraumatic, normocephalic, pupils equal and reactive bilaterally, negative for conjunctival pallor or scleral icterus, mucous membranes moist, TMs normal bilaterally, throat clear, neck supple, nontender, trachea midline. No drooling or trismus noted. No meningeal signs. No hot potato voice noted. Lungs: Clear to auscultation bilaterally. No wheezes, rales, or rhonchi. Chest nontender. Normal work of breathing, no accessory muscles used. Heart: S1S2, regular rate and rhythm without overt murmur, gallops, or rubs. No JVD. No peripheral edema Abdomen: Soft, nondistended, nontender. Normoactive bowel sounds. Negative for masses or costovertebral tenderness. Skin: Intact, warm, dry. No lesions or rashes noted. Hematologic: No petechiae or purpra. Mucosa appropriate color and normal nail bed color and refill. Extremities: Left podiatric foot and ankle specialist to touch dorsum and medial aspect. No discoloration or swelling noted. Good pedal pulses.Moves all other extremities per self without difficulty or deficits, negative for cords or calf pain. Neurovascular unremarkable. Neuro: Awake, alert, oriented. Cranial nerves II through XII unremarkable. Cerebellum unremarkable. Motor and sensory unremarkable throughout. Exam nonfocal. Psychiatric: Mood and affect are appropriate. Normal thought process. Answering questions appropriately. Notes: *This patient was seen and evaluated during the 2019 SARS-CoV-2 novel coronavirus pandemic period. Community viral transmission is ongoing at time of this encounter and the emergency department is operating under pandemic response procedures. As stated above the patient is a 35-year-old female who fell and injured her left dorsum foot. She states that she heard a pop but is unsure where the staff came from her knee or her foot. The patient describes her knee as dull pain. She states that the greatest pain is on the dorsum of her left foot. I will treat the patient's pain with Toradol IM. I will obtain a foot and ankle x-ray. I have talked with the patient about today's findings, in addition to providing specific details for plan of care. Reassessment at the time of disposition demonstrates that the patient is in no acute distress. The patient is stable for discharge, counseling was provided and we discussed in great detail signs and symptoms that would prompt them to return to the Emergency Department. Medication, follow up and supportive care measures were reviewed and discussed. Voices understanding and is agreeable to plan of care. Denies any further questions or concerns at this time. Diagnostics: Left foot and ankle x-ray Therapeutics: Toradol 60 mg IM Impression: Left foot contusion Plan: 1. You were evaluated today on an emergent basis. Your complaints of left foot pain were evaluated with an x-ray which showed no signs of an acute injury. Your pain was treated with Toradol 60 mg intramuscular injection. You can use Motrin 600 mg every 6 hours at home and Tylenol 650 every 4 hours as needed for pain. You can use ice for the first 24 hours and then afterwards use ice or heat whichever one makes it feel better. For the first 24 hours rest the foot. 2. You can alternate Tylenol and ibuprofen as needed for pain and fever management. 3. We encourage you to follow up with your primary care provider and/or recommended specialist in the next few days for re-evaluation and further care/management. 4. If your symptoms should worsen, new symptoms develop or any of the signs and symptoms we discussed should arise please return to the emergency room or call 911 (if needed). Definitive disposition and diagnosis as appropriate pending reevaluation and review of above. 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 Musculoskeletal History: Reports: None Neurological History: Reports: None Psychiatric History: Reports: None Endocrine/Metabolic History: Reports: None Hematologic History: Reports: None Immunologic History: Reports: None Oncologic (Cancer) History: Reports: None Dermatologic History: Reports: None - Infectious Disease History Infectious Disease History: Reports: None - Past Surgical History Head Surgeries/Procedures: Reports: None Female Surgical History: Reports: Section Social & Family History - Family History Family Medical History: No Pertinent Family History Cardiac: Reports: Cardiomyopathy, Other (See Below) Other Cardiac Family History: Grandmother has unknown heart disease; Father has had a stroke and CHF Respiratory: Reports: Asthma Other Respiratory Family Hisory: Sister GI: Reports: None Musculoskeletal: Reports: Osteoarthritis Other Musculoskeletal Family History: Mother and Grandmother Neurological: Reports: CVA Other Neurological Family History: Father Endocrine/Metabolic: Reports: Diabetes, type II - Caffeine Use Caffeine Use: Reports: None Review of Systems - Review of Systems Review Of Systems: Comprehensive ROS is negative, except as noted in HPI. ED EXAM, GENERAL - Physical Exam Exam: See Below (See dictation) Course - Vital Signs Last Recorded V/S: Last Vital Signs Temp 97.4 F 06/29/21 15:29 Pulse 97 06/29/21 15:29 Resp 16 06/29/21 15:29 BP 120/74 06/29/21 15:29 Pulse Ox 100 06/29/21 15:29 - Orders/Labs/Meds Meds: Medications Discontinued Medications Generic Name Dose Route Start Last Admin Trade Name Freq PRN Reason Stop Dose Admin Ketorolac Tromethamine 60 mg 06/29/21 13:58 06/29/21 14:09 Ketorolac 60 Mg/2 Ml Sdv IM 06/29/21 13:59 60 mg ONETIME ONE Administration Departure - Departure Time of Disposition: 15:05 Disposition: Home, Self-Care 01 Condition: Good Clinical Impression: Contusion Qualifiers: Encounter type: initial encounter Contusion area: foot Laterality: left Qualified Code(s): S90.32XA - Contusion of left foot, initial encounter - Discharge Information *PRESCRIPTION DRUG MONITORING PROGRAM REVIEWED*: Not Applicable *COPY OF PRESCRIPTION DRUG MONITORING REPORT IN PATIENT DAGMAR: Not Applicable Instructions: Contusion, [id number] Referrals: PCP,None [Primary Care Provider] - Forms: ED Department Discharge Additional Instructions: The following information is given to patients seen in the emergency department who are being discharged to home. This information is to outline your options for follow-up care. We provide all patients seen in our emergency department with a follow-up referral. The need for follow-up, as well as the timing and circumstances, are variable depending upon the specifics of your emergency department visit. If you don't have a primary care physician on staff, we will provide you with a referral. We always advise you to contact your personal physician following an emergency department visit to inform them of the circumstance of the visit and for follow-up with them and/or the need for any referrals to a consulting specialist. The emergency department will also refer you to a specialist when appropriate. This referral assures that you have the opportunity for follow-up care with a specialist. All of these measure are taken in an effort to provide you with o ptimal care, which includes your follow-up. Under all circumstances we always encourage you to contact your private physician who remains a resource for coordinating your care. When calling for follow-up care, please make the office aware that this follow-up is from your recent emergency room visit. If for any reason you are refused follow-up, please contact the [facility] Emergency Department at and asked to speak to the emergency department charge nurse. [facility] - [facility] [address] [place] [id number] [address] Sepsis Event Note (ED) - Evaluation Sepsis Screening Result: No Definite Risk - Focused Exam Vital Signs: Vital Signs Temp Pulse Resp BP Pulse Ox 06/29/21 15:29 97.4 F 97 16 120/74 100 06/29/21 14:48 88 16 128/81 100 06/29/21 13:46 97.7 F 97 20 136/89 98
--- NOTE | 2021-06-29 14:56 | CR ---
Indication: Injury and pain Technique: Left ankle 3 views. Comparison: None Findings: Bones: Alignment is normal. No fractures or bone lesions. Joint spaces: Unremarkable. Soft tissues: Unremarkable. Impression: No sign of acute injury. Dictated by Chalo Shelby MD @ 06/29/2021 2:55:[address] Chalo Shelby @ Jun 29 2021 2:55PM
--- NOTE | 2021-06-29 14:58 | CR ---
Indication: Injury and pain Technique: Left foot 3 views. Comparison: None Findings: Bones: Alignment is normal. No fractures or bone lesions. Joint spaces: Unremarkable. Soft tissues: Unremarkable. Impression: No sign of acute injury. Dictated by Chalo Shelby MD @ 06/29/2021 2:56:[address] Chalo Shelby @ Jun 29 2021 2:56PM
== END 2021-06-29 15:30 | disposition home or self-care (01) ==
LOC: MW.ED 13:28
DX: S90.32XA Contusion of left foot, initial encounter (principal); W19.XXXA Unspecified fall, initial encounter; Y93.66 Activity, soccer
CPT/HCPCS: 73610; 73630; 96372; 99283; J1885

== ENCOUNTER 2021-08-07 11:25 | Emergency (ER) | payer MEDICAID ==
[2021-08-07] MEDS ORDERED: Ketorolac 15 MG/ML SDV IM ONE (13:56)
--- NOTE | 2021-08-07 13:58 | EDM.PDOC ---
ED HPI GENERAL MEDICAL PROBLEM - General Chief Complaint: General Stated Complaint: DEEP PAIN W/BREATHING Time Seen by Provider: 08/07/21 13:30 - History of Present Illness INITIAL COMMENTS - FREE TEXT/NARRATIVE: CHIEF COMPLAINT(S): Back pain HISTORY OF PRESENT ILLNESS: This is a 35-year-old woman without any significant past medical history who presents to the emergency department the chief complaint of back pain. The patient states that yesterday she started having back pain which he describes as bilateral located by her scapula rated 7 out of 10 which she describes as dull and achy. She states his pain is worse with lifting and then becomes sharp. She denies any chest pain or shortness of breath. She states that she tried massage which did not help and tried ibuprofen yesterday morning which also did not help. She denies any recent travel, recent surgery, prior history of DVT or PE. She denies any other symptoms. There is no radiation of this pain. REVIEW OF SYSTEMS: Constitutional: Denies fever, chills. Eyes: Denies eye pain Ears, Nose, Mouth, & Throat: Denies earache Cardiovascular: Denies chest pain Respiratory: Denies shortness of breath Gastrointestinal: Denies Nausea, vomiting, diarrhea, hematochezia. Genitourinary: Denies hematuria Skin:Denies a rash MSK: Positive for bilateral pain near her shoulder blades. Neurological: Denies blurred vision, numbness, tingling, weakness psychiatric: Denies depression PAST MEDICAL HISTORY: As per history of present illness and as reviewed below otherwise noncontributory. SURGICAL HISTORY: As per history of present illness and as reviewed below otherwise noncontributory. SOCIAL HISTORY: As per history of present illness and as reviewed below otherwise noncontributory. FAMILY HISTORY: As per history of present illness and as reviewed below otherwise noncontributory. EXAMINATION OF ORGAN SYSTEMS/BODY AREAS: Constitutional: Blood pressure is 125/72, heart rate 87, respiratory rate 18 with an oxygen saturation of 100% on room air. Temperature 36.8. General: Well-appearing woman who is in no acute distress Psychiatric: Appropriate mood and affect. Eyes: No scleral icterus or conjunctival erythema ENMT: Moist mucous membranes. No pharyngeal erythema Cardiovascular: Regular, rate, and rhythm. No gallops, murmurs, or rubs. Bilateral upper extremity pulses symmetric and intact. No peripheral edema. No JVD. Respiratory: Lungs clear to auscultation bilaterally. No wheezes, rales, or rhonchi. Gastrointestinal: Soft, non-tender, non-distended. Normoactive bowel sounds Genitourinary: No suprapubic tenderness Musculoskeletal: Normal range of motion. There is no midline cervical, thoracic, or lumbar tenderness. There is paracervical and parathoracic muscle tenderness and tightness. Skin: No lesions or abrasions. Neurological: Alert, GCS 15 MEDICAL DECISION MAKING AND COURSE IN THE ED WITH INTERPRETATION/REVIEW OF DIAGNOSTIC STUDIES: This is a 35-year-old woman with a past medical history of obesity who presents to the emergency department with back pain who has evidence of paraspinal muscle tenderness and tightness. At this time I do believe this is secondary to muscular strain. I did discuss treatment with the patient. She was given strict return precautions and was amenable to discharge at this time and had no further questions. DISPOSITION: The patient was discharged home in stable condition. The patient will follow up with primary care physician in 3 to 5 days CONDITION: Fair PROCEDURES: None FINAL IMPRESSION(S)/DIAGNOSES: 1. Acute muscular strain/back pain Bc Packer M.D. Bilateral Back Pain Score (Numeric/FACES): 5 - Related Data Allergies Allergy/AdvReac Type Severity Reaction Status Date / Time No Known Allergies Allergy Verified 06/29/21 13:45 Home Meds: Home Meds Acetaminophen [Tylenol Extra Strength] 1,000 mg PO Q6HR #56 tablet 08/07/21 [Rx] Ibuprofen 600 mg PO Q6HR #28 tablet 08/07/21 [Rx] methocarbamoL [Methocarbamol] 1,500 mg PO TID #42 tablet 08/07/21 [Rx] Past Medical History HEENT History: Reports: None Other HEENT History: wears reading glasses Cardiovascular History: Reports: Other (See Below) Other Cardiovascular History: Tachycardia Hx- Cardiac R/O Respiratory History: Reports: None Gastrointestinal History: Reports: GERD, Irritable Bowel Syndrome, Other (See Below) Other Gastrointestinal History: Chron's, Gastroparesis; heartburn only during - takes Tums Genitourinary History: Reports: None 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 Musculoskeletal History: Reports: None Neurological History: Reports: None Psychiatric History: Reports: None Endocrine/Metabolic History: Reports: None Hematologic History: Reports: None Immunologic History: Reports: None Oncologic (Cancer) History: Reports: None Dermatologic History: Reports: None - Infectious Disease History Infectious Disease History: Reports: Novel Coronavirus - Past Surgical History Head Surgeries/Procedures: Reports: None HEENT Surgical History: Reports: None Cardiovascular Surgical History: Reports: None Respiratory Surgical History: Reports: None GI Surgical History: Reports: None Female Surgical History: Reports: Section Endocrine Surgical History: Reports: None Neurological Surgical History: Reports: None Musculoskeletal Surgical History: Reports: None Oncologic Surgical History: Reports: None Dermatological Surgical History: Reports: None Social & Family History - Family History Family Medical History: No Pertinent Family History Cardiac: Reports: Cardiomyopathy, Other (See Below) Other Cardiac Family History: Grandmother has unknown heart disease; Father has had a stroke and CHF Respiratory: Reports: Asthma Other Respiratory Family Hisory: Sister GI: Reports: None Musculoskeletal: Reports: Osteoarthritis Other Musculoskeletal Family History: Mother and Grandmother Neurological: Reports: CVA Other Neurological Family History: Father Endocrine/Metabolic: Reports: Diabetes, type II - Tobacco Use Tobacco Use Status *Q: Current Every Day Tobacco User Years of Tobacco use: 5 Packs/Tins Daily: 1 - Caffeine Use Caffeine Use: Reports: None - Recreational Drug Use Recreational Drug Use: No ED ROS GENERAL - Review of Systems Review Of Systems: See Below ED EXAM, GENERAL - Physical Exam Exam: See Below Course - Vital Signs Last Recorded V/S: Last Vital Signs Temp 36.8 C 08/07/21 14:26 Pulse 84 08/07/21 14:26 Resp 18 08/07/21 14:26 BP 121/73 08/07/21 14:26 Pulse Ox 97 08/07/21 14:26 - Orders/Labs/Meds Meds: Medications Discontinued Medications Generic Name Dose Route Start Last Admin Trade Name Freq PRN Reason Stop Dose Admin Ketorolac Tromethamine 15 mg 08/07/21 13:56 08/07/21 14:08 Ketorolac 15 Mg/Ml Sdv IM 08/07/21 13:57 15 mg ONETIME ONE Administration Departure - Departure Time of Disposition: 13:57 Disposition: Home, Self-Care 01 Condition: Fair Clinical Impression: Muscle strain - Discharge Information *PRESCRIPTION DRUG MONITORING PROGRAM REVIEWED*: No *COPY OF PRESCRIPTION DRUG MONITORING REPORT IN PATIENT DAGMAR: No Prescriptions: Ibuprofen 600 mg PO Q6HR #28 tablet methocarbamoL [Methocarbamol] 1,500 mg PO TID #42 tablet Acetaminophen [Tylenol Extra Strength] 1,000 mg PO Q6HR #56 tablet Instructions: Muscle Strain, [id number] Referrals: PCP,None [Primary Care Provider] - Forms: ED Department Discharge Additional Instructions: Your evaluated today on an emergent basis. At this time I do believe you are experiencing muscle strain versus spasm. I do recommend that you use Tylenol Motrin as described below and use the Robaxin as prescribed. You may alternate with heat in addition to the ice. If you have any chest pain, shortness of breath, cough, coughing up blood or pass out I would like you to return to the emergency department. Otherwise follow-up with your primary care physician in 3 to 5 days. Please use: Tylenol 500-1000mg every 6 hours (DO NOT TAKE MORE THAN 4000mg in 1 day) Ibuprofen 400mg every 6 hours (Take with food as it can cause ulcers, GI upset) Example schedule: 8:00 AM (Tylenol 500-1000mg) 11:00 AM (Ibuprofen 400mg) 2:00 PM (Tylenol 500-1000mg) 5:00 PM (Ibuprofen 400mg) In addition to Tylenol and Motrin you may use over the counter creams such as Voltaren Cream or Lidocaine Cream (Lidoderm) as needed 4 times a day for symptomatic relief. Ice the area 20 minutes 4 times per day [facility] [address] [place] [address] [place] [address] The patient is informed of any results of their evaluation and diagnostic workup and all questions are answered. They are given discharge instructions and return precautions. The patient is stable for discharge. The patient states they understand and agree with the plan and that they will return if their symptoms get worse or if they have any new concerns. The following information is given to patients seen in the emergency department who are being discharged to home. This information is to outline your options for follow-up care. We provide all patients seen in our emergency department with a follow-up referral. The need for follow-up, as well as the timing and circumstances, are variable depending upon the specifics of your emergency department visit. If you don't have a primary care physician on staff, we will provide you with a referral. We always advise you to contact your personal physician following an emergency department visit to inform them of the circumstance of the visit and for follow-up with them and/or the need for any referrals to a consulting specialist. The emergency department will also refer you to a specialist when appropriate. This referral assures that you have the opportunity for follow-up care with a specialist. All of these measure are taken in an effort to provide you with optimal care, which includes your follow-up. Under all circumstances we always encourage you to contact your private physician who remains a resource for coordinating your care. When calling for follow-up care, please make the office aware that this follow-up is from your recent emergency room visit. If for any reason you are refused follow-up, please contact the [facility] Emergency Department at and asked to speak to the emergency department charge nurse. Sepsis Event Note (ED) - Evaluation Sepsis Screening Result: No Definite Risk
== END 2021-08-07 14:26 | disposition home or self-care (01) ==
LOC: MW.ED 11:25
DX: S29.012A Strain of muscle and tendon of back wall of thorax, initial encounter (principal); Z72.0 Tobacco use; Z86.16 Personal history of COVID-19; X58.XXXA Exposure to other specified factors, initial encounter
CPT/HCPCS: 96372; 99283; J1885

== ENCOUNTER 2021-12-14 11:27 | Emergency (ER) | payer MEDICAID ==
[2021-12-14] MEDS ORDERED: Sodium Chloride 0.9% 1,000 ML IV ONE (11:52)
[2021-12-14] MEDS ORDERED: Ondansetron 4 MG/2 ML SDV IVPUSH ONE (11:52)
[2021-12-14] MEDS ORDERED: Famotidine 20 MG/2 ML SDV IVPUSH ONE (11:52)
[2021-12-14 12:53] LABS: BLOOD UREA NITROGEN,BUN 10 mg/dL (7.0-18.0); CARBON DIOXIDE,CO2 23.3 mmol/L (21.0-32.0); CHLORIDE,CL 104 mmol/L (98-107); GLUCOSE RANDOM 87 mg/dL (74-106); SODIUM,NA 138 mmol/L (136-145)
== END 2021-12-14 13:36 | disposition home or self-care (01) ==
LOC: MW.ED 11:27
DX: U07.1 COVID-19 (principal); K52.9 Noninfective gastroenteritis and colitis, unspecified
CPT/HCPCS: 36415; 71045; 80053; 85025; 96374; 96375; 99284; J2405; J3490; J7030

== ENCOUNTER 2022-07-01 11:25 | Emergency (ER) | payer BC, MEDICAID | END 2022-07-01 12:01 | disposition home or self-care (01) | LOC: MW.ED 11:25 | DX: J01.00 Acute maxillary sinusitis, unspecified (principal); Z86.16 Personal history of COVID-19 | CPT/HCPCS: 99282 ==

== ENCOUNTER 2022-09-25 16:23 | Emergency (ER) | payer MEDICAID ==
[2022-09-25 17:37] LABS: CORONAVIRUS COVID-19 NAA NEGATIVE (NEGATIVE); INFLUENZA A NAA NEGATIVE (NEGATIVE); INFLUENZA B NAA NEGATIVE (NEGATIVE)
== END 2022-09-25 18:04 | disposition home or self-care (01) ==
LOC: MW.ED 16:23
DX: R07.9 Chest pain, unspecified (principal); Z20.822 Contact with and (suspected) exposure to COVID-19; Z86.16 Personal history of COVID-19
CPT/HCPCS: 0240U; 71045; 93005; 99285

== ENCOUNTER 2022-11-05 13:12 | Emergency (ER) | payer MEDICAID ==
[2022-11-05] MEDS ORDERED: Ondansetron 4 MG/2 ML SDV IVPUSH ONE (13:48)
[2022-11-05] MEDS ORDERED: Sodium Chloride 0.9% 1,000 ML IV ONE (13:48)
[2022-11-05] MEDS ORDERED: fentaNYL 50 MCG/ML SDV IVPUSH ONE (13:48)
== END 2022-11-05 17:22 | disposition home or self-care (01) ==
LOC: MW.ED 13:12
DX: O20.9 Hemorrhage in early pregnancy, unspecified (principal); Z3A.01 Less than 8 weeks gestation of pregnancy
CPT/HCPCS: 36415; 76801; 81001; 84702; 85025; 86900; 86901; 96361; 96374; 96375; 99284; J2405; J3010; J7030

== ENCOUNTER 2022-11-21 04:46 | Emergency (ER) | payer BC, MEDICAID ==
[2022-11-21 06:00] LABS: CARBON DIOXIDE,CO2 23.9 mmol/L (21.0-32.0); POTASSIUM,K 3.5 mmol/L (3.5-5.1)
[2022-11-21] MEDS ORDERED: Acetaminophen 325 MG Tab PO ONE (06:04)
[2022-11-21 07:39] LABS: C. TRACHOMATIS BY PCR NOT DETECTED; N. GONORRHOEAE BY PCR NOT DETECTED
== END 2022-11-21 09:47 | disposition home or self-care (01) ==
LOC: MW.ED 04:46
DX: O03.9 Complete or unspecified spontaneous abortion without complication (principal); Z98.890 Other specified postprocedural states
CPT/HCPCS: 36415; 76801; 80053; 81001; 84702; 85025; 87480; 87491; 87510; 87591; 87660; 99284; A9270

== ENCOUNTER 2023-01-06 13:01 | Emergency (ER) | payer BC | END 2023-01-06 14:00 | disposition home or self-care (01) | LOC: MW.ED 13:01 | DX: K08.89 Other specified disorders of teeth and supporting structures (principal) | CPT/HCPCS: 99282; 99283 ==

== ENCOUNTER 2023-03-03 12:48 | Emergency (ER) | payer BC, MEDICAID ==
[2023-03-03] MEDS ORDERED: Acetaminophen/HYDROcodone 325-5 MG Tab PO ONE (15:25)
[2023-03-03] MEDS ORDERED: Ibuprofen 400 MG Tab PO ONE (15:25)
== END 2023-03-03 16:40 | disposition home or self-care (01) ==
LOC: MW.ED 12:48
DX: M23.92 Unspecified internal derangement of left knee (principal); Z86.16 Personal history of COVID-19; X50.1XXA Overexertion from prolonged static or awkward postures, initial encounter; Y93.67 Activity, basketball
CPT/HCPCS: 73562; 99283; A9270

== ENCOUNTER 2023-04-03 09:09 | Emergency (ER) | payer BC, MEDICAID ==
[2023-04-03] MEDS ORDERED: Aspirin 81 MG Tab.Chew PO ONE (09:25)
[2023-04-03 09:31] LABS: BASOPHILS PERCENT AUTO 0.4 % (0.0-1.5); EOSINOPHILS ABSOLUTE AUTO 0.3 K/uL (0.0-0.7); EOSINOPHILS PERCENT AUTO 4.9 % (0.0-7.0); HEMATOCRIT 37.5 % (36.0-46.0); HEMOGLOBIN 12.2 g/dL (12.0-16.0); LYMPHOCYTES ABSOLUTE AUTO 2.9 K/uL (0.6-2.4); LYMPHOCYTES PERCENT AUTO 41.9 % (16.0-40.0); MEAN CORPUSCULAR HEMOGLOBIN 26.9 pg (27.0-32.0); MEAN CORPUSCULAR HGB CONC 32.5 g/dL (31.0-37.0); MEAN CORPUSCULAR VOLUME 82.8 fL (80.0-98.0); MONOCYTES ABSOLUTE AUTO 0.5 K/uL (0.0-0.8); MONOCYTES PERCENT AUTO 7.9 % (0.0-15.0); NEUTROPHILS ABSOLUTE AUTO 3.1 K/uL (1.4-5.7); NEUTROPHILS PERCENT AUTO 44.9 % (48.0-80.0); NRBC ABSOLUTE 0 K/uL; PLATELET COUNT,PLT 410 K/uL (150-400); RED BLOOD CELL COUNT 4.53 M/uL (4.30-5.90); WHITE BLOOD CELL COUNT,WBC 6.87 K/uL (4.0-11.0)
[2023-04-03 10:04] LABS: A/G RATIO 0.8 (0.9-1.6); ALBUMIN 3.4 g/dL (3.4-5.0); BILIRUBIN TOTAL 0.2 mg/dL (0.2-1.0); CARBON DIOXIDE,CO2 24.9 mmol/L (21.0-32.0); EST CRCL DRUG DOSING (CG) 61.51 mL/min; POTASSIUM,K 3.6 mmol/L (3.5-5.1); PROTEIN TOTAL,TP 7.6 g/dL (6.4-8.2)
[2023-04-03] MEDS ORDERED: Alum Hydro/Mag Hydro/Simeth XS 15 ML, Lidocaine 2% 5 ML PO ONE ×2 (10:15)
[2023-04-03] MEDS ORDERED: Acetaminophen 325 MG Tab PO ONE (10:15)
== END 2023-04-03 13:34 | disposition home or self-care (01) ==
LOC: MW.ED 09:09
DX: R07.89 Other chest pain (principal); R07.81 Pleurodynia; I25.2 Old myocardial infarction; Z86.16 Personal history of COVID-19; Z95.5 Presence of coronary angioplasty implant and graft; Z98.890 Other specified postprocedural states
CPT/HCPCS: 36415; 71045; 80053; 84484; 84703; 85025; 85379; 99285; A9270; 93010; 99283

== ENCOUNTER 2023-04-11 19:53 | Emergency (ER) | payer BC, MEDICAID ==
[2023-04-11] MEDS ORDERED: tiZANidine 4 MG Tab PO ONE (20:21)
[2023-04-11] MEDS ORDERED: Acetaminophen 500 MG Tab PO ONE (20:21)
== END 2023-04-11 20:54 ==
LOC: MW.ED 19:53
DX: S83.242A Other tear of medial meniscus, current injury, left knee, initial encounter (principal); S83.282A Other tear of lateral meniscus, current injury, left knee, initial encounter; Z86.16 Personal history of COVID-19
CPT/HCPCS: 99283; A9270

== ENCOUNTER 2023-04-16 07:58 | Day surgery (SDC) | payer OTHER, BC, MEDICAID ==
[~2023-04-16 07:58] MED LIST changes: +Albuterol 0.083% 2.5 MG/3 ML Neb Soln NEB PRN; -Citric Acid/Sodium Citrate Solution 30 ML Cup PO ONE; +HYDROmorphone 1 MG/ML Syringe IVPUSH PRN; +Lactated Ringers 1,000 ML IV SCH; +Metoclopramide 10 MG/2 ML SDV IVPUSH PRN; +Morphine 2 MG/ML SYRINGE IVPUSH PRN; +Naloxone 0.4 MG/ML SDV IVPUSH PRN; +Ondansetron 4 MG/2 ML SDV IVPUSH PRN; -Oxytocin/0.9 % Sodium Chloride 30 UNIT/500 ML BAG IV SCH; +Propofol 200 MG/20 ML SDV ONE; -Sodium Chloride 0.9% 10 ML SDV IV PRN; -Sodium Chloride 0.9% 10 ML Syringe FLUSH PRN; -Sodium Chloride 0.9% 2.5 ML Syringe FLUSH PRN; +droPERidol 5 MG/2 ML SDV IVPUSH PRN; +fentaNYL 100 MCG/2 ML SDV ONE; +fentaNYL 50 MCG/ML SDV IVPUSH PRN; +propofoL 50 ML ONE
[2023-04-16] MEDS ORDERED: ceFAZolin 2 GM in Sodium Chloride 0.9% 50 ML IV ONE (08:00)
[2023-04-16] MEDS ORDERED: Bupivacaine 25%/EPINEPHrine/PF 30 ML ONE (08:40)
[2023-04-16] MEDS ORDERED: Morphine Sulfate 10mg/ml SDV ONE (09:15)
[2023-04-16] MEDS ORDERED: fentaNYL 100 MCG/2 ML SDV ONE (09:15)
== END 2023-04-16 13:00 | disposition home or self-care (01) ==
LOC: MW.SDS 07:58
PROVIDERS: ATTEND Orthopaedic Surgery
DX: S83.242A Other tear of medial meniscus, current injury, left knee, initial encounter (principal); S83.282A Other tear of lateral meniscus, current injury, left knee, initial encounter; S83.512A Sprain of anterior cruciate ligament of left knee, initial encounter; K21.9 Gastro-esophageal reflux disease without esophagitis; K58.9 Irritable bowel syndrome, unspecified; D64.9 Anemia, unspecified; Z20.822 Contact with and (suspected) exposure to COVID-19; Z88.5 Allergy status to narcotic agent; Z87.891 Personal history of nicotine dependence; X58.XXXA Exposure to other specified factors, initial encounter
CPT/HCPCS: 29881; 81025; J0131; J1170; J2405; J2704; J3010; J7120; J2270; J3490

== ENCOUNTER 2023-08-04 09:20 | Emergency (ER) | payer BC, MEDICAID | END 2023-08-04 10:40 | disposition home or self-care (01) | LOC: MW.ED 09:20 | DX: H10.9 Unspecified conjunctivitis (principal); Z86.16 Personal history of COVID-19 | CPT/HCPCS: 99283 ==

== ENCOUNTER 2023-12-22 08:05 | Emergency (ER) | payer BC ==
[2023-12-22] MEDS ORDERED: Ondansetron 4 MG Tab.DIS PO ONE (08:38)
[2023-12-22 09:22] LABS: CORONAVIRUS COVID-19 NAA NEGATIVE (NEGATIVE); INFLUENZA A NAA NEGATIVE (NEGATIVE); INFLUENZA B NAA NEGATIVE (NEGATIVE); RESPIRATORY SYNCYTIAL VIR NAA NEGATIVE (NEGATIVE)
== END 2023-12-22 09:52 | disposition home or self-care (01) ==
LOC: MW.ED 08:05
DX: J02.9 Acute pharyngitis, unspecified (principal); Z86.16 Personal history of COVID-19
CPT/HCPCS: 0241U; 87651; 99284; A9270; 99283

== ENCOUNTER 2024-07-27 08:09 | Emergency (ER) | payer SELFPAY ==
[2024-07-27] MEDS: Ketorolac 60 MG/2 ML SDV IM ONE (08:42)
[2024-07-27 10:10] VITALS: BP 130/97; PULSE 101
== END 2024-07-27 10:09 | disposition home or self-care (01) ==
LOC: MW.ED 08:09
DX: S46.912A Strain of unspecified muscle, fascia and tendon at shoulder and upper arm level, left arm, initial encounter (principal); Z79.899 Other long term (current) drug therapy; X58.XXXA Exposure to other specified factors, initial encounter
CPT/HCPCS: 73030-26-LT; 73030-LT; 96372; 99282; 99283; J1885